=== PATIENT | female | born 1980 | race Caucasian/White ===

== ENCOUNTER 2017-03-14 15:12 | Outpatient (CLI) | payer BC, OTHER | END 2017-03-14 15:13 | disposition home or self-care (01) | DX: J45.909 Unspecified asthma, uncomplicated (principal) ==

== ENCOUNTER 2017-04-25 15:38 | Outpatient (CLI) | payer OTHER ==
[2017-04-25] MEDS ORDERED: IOPAMIDOL-300 100 ML VIAL IVP ONE (16:53)
--- NOTE | 2017-04-25 19:06 | CT Report ---
CHEST ANGIO CT: 04/25/2017 CLINICAL HISTORY: A 36-year-old female with uncomplicated asthma and chest pain. TECHNIQUE: Patient received 80 mL of Isovue-300. A CAT scan of the pulmonary arteries was obtained at 2 mm intervals with axial, coronal, and sagittal reconstruction images. FINDINGS: Heart shows no significant enlargement. No septal bowing is seen. No filling defects are noted in the ventricles. Main pulmonary artery, right pulmonary artery and its branches are normal. Left pulmonary artery and its branches are normal. Aorta appears normal. No coronary artery calcification is seen. Lungs demonstrate some mild apical pleural thickening. No significant infiltrates are seen. No nodu les are noted. No evidence of bronchial wall thickening or bronchiectasis is seen. Bones demonstrate mild anterior spurring. Upper abdomen showed no significant abnormality. IMPRESSION: NO SIGNIFICANT ABNORMALITY. In accordance with CT protocol optimization, one or more of the following dose reduction techniques w ere utilized for this exam: automated exposure control, adjustment of mA and/or KV based on patient size, or use of iterative reconstructive technique. JOB #: [id number] EXT JOB #:[id number]
== END 2017-04-25 15:39 | disposition home or self-care (01) ==
LOC: DI 15:38
PROVIDERS: ATTEND Internal Medicine Pulmonary Disease
DX: J45.909 Unspecified asthma, uncomplicated (principal); R07.9 Chest pain, unspecified
CPT/HCPCS: 71275; Q9967

== ENCOUNTER 2017-08-24 11:12 | Outpatient (CLI) | payer OTHER ==
--- NOTE | 2017-08-25 12:25 | Ultrasound Report ---
EXAM: PELVIC ULTRASOUND EXAM DATE: 08/24/2017 11:14 AM. CLINICAL HISTORY: Menorrhagia. Full menstrual period every 2 weeks. COMPARISON: None. TECHNIQUE: Realtime transabdominal pelvic scan performed to identify the uterus and adnexa and as an overview of other pelvic structures, followed by transvaginal scan to provide greater detail of the u terus and adnexa, with static image documentation. FINDINGS: Uterus: 8.5 x 3.9 x 5.2 cm, volume 90 cc. Anteverted position. Normal overall size and echotexture. Masses: Hypoechoic posterior fundal mass measures 1.9 x 1.3 x 1.7 cm. Endometrium: 18.5 mm. Thickened. Right Ovary: 3.4 x 2.2 x 2.8 cm, volume 10.9 cc. Normal echotexture and blood flow. Left Ovary: 2.9 x 1.8 x 2.1 cm, volume 5.7 cc. Normal echotexture and blood flow. Free Fluid: Small. Other: None. IMPRESSION: 1. Hyperechoic posterior fundal mass measuring 1.9 cm in diameter. This most likely represents an aty pical fibroid. 2. Thickened endometrium measuring up to 18.5 mm. 3. Small free fluid. [facility] Referring Provider Line: [phone] SITE ID: [id number]
== END 2017-08-24 11:13 | disposition home or self-care (01) ==
LOC: DI 11:12
PROVIDERS: ATTEND Physician Assistant Medical
DX: R93.8 Abnormal findings on diagnostic imaging of other specified body structures (principal); N85.9 Noninflammatory disorder of uterus, unspecified
CPT/HCPCS: 76830; 76856

== ENCOUNTER 2018-10-29 20:14 | Emergency (ER) | payer BC, OTHER ==
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
[2018-10-29 21:14] VITALS: BP 118/88
== END 2018-10-29 21:15 | disposition home or self-care (01) ==
LOC: ED 20:14
DX: S61.532A Puncture wound without foreign body of left wrist, initial encounter (principal); W26.8XXA Contact with other sharp object(s), not elsewhere classified, initial encounter; Y93.D2 Activity, sewing; Y92.009 Unspecified place in unspecified non-institutional (private) residence as the place of occurrence of the external cause
CPT/HCPCS: 99283

== ENCOUNTER 2019-02-02 14:04 | Outpatient (CLI) | payer BC ==
--- NOTE | 2019-02-02 14:59 | XRAY Report ---
Reason: KNEE JOINT PAIN, LEFT Procedure Date: 02/02/2019 Accession Number: [id number] / [id number] Procedure: WCP - Knee 2 View LT CPT Code: FULL RESULT: EXAM: LEFT KNEE RADIOGRAPHY. EXAM DATE: 02/02/2019 02:22 PM. CLINICAL HISTORY: Knee joint pain, left. COMPARISON: None. TECHNIQUE: 2 views. FINDINGS: Bones: Normal. No fractures or bone lesions. Joints: Normal. No effusion. No subluxations. Soft Tissues: Normal. No soft tissue swelling. IMPRESSION: No significant degenerative changes, fracture or dislocation. [facility]
== END 2019-02-02 14:05 | disposition home or self-care (01) ==
LOC: DI.WCP 14:04
PROVIDERS: ATTEND Family Medicine
DX: M25.562 Pain in left knee (principal)

== ENCOUNTER 2019-02-20 13:02 | Outpatient (CLI) | payer BC ==
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
== END 2019-02-20 13:03 | disposition home or self-care (01) ==
LOC: DI 13:02
PROVIDERS: ATTEND Physician Assistant Medical
DX: S82.145A Nondisplaced bicondylar fracture of left tibia, initial encounter for closed fracture (principal); S80.12XA Contusion of left lower leg, initial encounter; S83.242A Other tear of medial meniscus, current injury, left knee, initial encounter; S83.512A Sprain of anterior cruciate ligament of left knee, initial encounter; M22.42 Chondromalacia patellae, left knee; M25.462 Effusion, left knee

== ENCOUNTER 2019-12-08 09:25 | Outpatient (CLI) | payer BC, OTHER ==
[2019-12-08 13:00] LABS: BASOPHILS % (AUTO) 0.7 %; EOSINOPHILS # (AUTO) 0.1 10^3/uL (0.0-0.7); EOSINOPHILS % (AUTO) 1.9 %; HGB - HEMOGLOBIN 13.2 g/dL (12.0-16.0); LYMPHOCYTES # (AUTO) 1.1 10^3/uL (1.5-3.5); LYMPHOCYTES % (AUTO) 19.9 %; MEAN CORPUSCULAR HEMOGLOBIN 29.3 pg (27.0-31.0); MEAN CORPUSCULAR HGB CONC 32.8 g/dL (32.0-36.0); MEAN CORPUSCULAR VOLUME 89.4 fL (81.0-99.0); MEAN PLATELET VOLUME 10.6 fL (7.9-10.8); MONOCYTES # (AUTO) 0.5 10^3/uL (0.0-1.0); MONOCYTES % (AUTO) 8.3 %; NEUTROPHILS # (AUTO) 3.9 10^3/uL (1.5-6.6); PLT - PLATELET COUNT 194 10^3/uL (130-450); RED BLOOD COUNT 4.51 10^6/uL (4.20-5.40); RED CELL DISTRIBUTION WIDTH 12.6 % (12.0-15.0); WHITE BLOOD COUNT 5.7 x10^3/uL (4.8-10.8)
[2019-12-08 13:26] LABS: ALBUMIN 4.5 g/dL (3.2-5.5); ALBUMIN/GLOBULIN RATIO 1.9 (1.0-2.2); ALKALINE PHOSPHATASE 45 IU/L (42-121); ALT ALANINE AMINOTRANSFERASE 18 IU/L (10-60); AST ASPARTATE AMINOTRANSFERASE 23 IU/L (10-42); BILIRUBIN,TOTAL 0.9 mg/dL (0.2-1.0); BUN - BLOOD UREA NITROGEN 10 mg/dL (6-20); CALCIUM 8.8 mg/dL (8.5-10.3); CARBON DIOXIDE - CO2 27 mmol/L (21-32); CHLORIDE 103 mmol/L (101-111); CHOL/HDL RATIO 2.7 (<4.4); CHOLESTEROL 199 mg/dL; CREATININE 0.7 mg/dL (0.4-1.0); GFR - MDRD 92 (>89); GLUCOSE 82 mg/dL (70-100); HDL CHOLESTEROL 74 mg/dL; LDL CHOLESTEROL,CALCULATED 116 mg/dL; LDL/HDL RATIO 1.6 (<4.4); SODIUM 137 mmol/L (135-145); TOTAL PROTEIN 6.9 g/dL (6.7-8.2); VLDL CHOLESTEROL 9 mg/dL
[2019-12-08 13:55] LABS: FOLLICLE STIMULATING HORMONE 11.21 mIU/mL
[2019-12-08 13:56] LABS: LUTEINIZING HORMONE 7.63 mIU/mL
== END 2019-12-08 23:59 | disposition home or self-care (01) ==
LOC: LAB.WCP 09:25
PROVIDERS: ATTEND Physician Assistant Medical
DX: Z00.00 Encounter for general adult medical examination without abnormal findings (principal); R41.3 Other amnesia; N94.10 Unspecified dyspareunia
CPT/HCPCS: 36415; 80053; 80061; 82607; 82670; 83001; 83002; 83721; 84443; 85025

== ENCOUNTER 2020-02-23 10:56 | Outpatient (CLI) | payer OTHER | END 2020-02-23 23:59 | disposition home or self-care (01) | LOC: LAB.WCP 10:56 | PROVIDERS: ATTEND Physician Assistant Medical | DX: R06.09 Other forms of dyspnea (principal) | CPT/HCPCS: 36415; 85379 ==

== ENCOUNTER 2020-09-21 11:10 | Outpatient (CLI) | payer OTHER | END 2020-09-21 11:11 | disposition home or self-care (01) | LOC: COV 11:10 | PROVIDERS: ATTEND Family Medicine | DX: R05 Cough (principal); R06.02 Shortness of breath; R53.83 Other fatigue; R19.7 Diarrhea, unspecified; R09.81 Nasal congestion; R11.2 Nausea with vomiting, unspecified; Z20.828 Contact with and (suspected) exposure to other viral communicable diseases ==

== ENCOUNTER 2020-11-21 08:00 | Outpatient (CLI) | payer OTHER ==
[2020-11-21 18:06] LABS: BASOPHILS % (AUTO) 0.5 %; EOSINOPHILS # (AUTO) 0.2 10^3/uL (0.0-0.7); EOSINOPHILS % (AUTO) 2.4 %; HGB - HEMOGLOBIN 13.8 g/dL (12.0-16.0); LYMPHOCYTES # (AUTO) 1.7 10^3/uL (1.5-3.5); LYMPHOCYTES % (AUTO) 27.5 %; MEAN CORPUSCULAR HEMOGLOBIN 29.4 pg (27.0-31.0); MEAN CORPUSCULAR HGB CONC 32.2 g/dL (32.0-36.0); MEAN CORPUSCULAR VOLUME 91.3 fL (81.0-99.0); MEAN PLATELET VOLUME 10.3 fL (7.9-10.8); MONOCYTES # (AUTO) 0.5 10^3/uL (0.0-1.0); MONOCYTES % (AUTO) 8.4 %; NEUTROPHILS # (AUTO) 3.8 10^3/uL (1.5-6.6); PLT - PLATELET COUNT 220 10^3/uL (130-450); RED BLOOD COUNT 4.69 10^6/uL (4.20-5.40); RED CELL DISTRIBUTION WIDTH 12.5 % (12.0-15.0); WHITE BLOOD COUNT 6.2 x10^3/uL (4.8-10.8)
--- OUTSIDE RECORDS SUMMARY | 2020-11-22 14:42 | EXTERNAL MEDICAL SUMMARY RPT | Continuity of Care Document ---
:1980 Demographics Phone Unavailable Preferred Language Urdu Marital Status Unknown Protestant Affiliation Unknown Race Unknown Ethnic Group Unknown Author Organization [place] Address [address] [phone] Phone Care Team Providers Name Role Phone PAMaria C Unavailable Unavailable Isabelle Unavailable Unavailable Young Unavailable Unavailable Young Unavailable Unavailable Problems date description facility 1988-12-02 00:00:00 Personal history of other [facility] specified diseases [place] [facility] 2006-09-16 00:00:00 Viral warts, [facility] [address] 2006-09-16 00:00:00 Other viral warts [facility] [address] 2006-09-16 00:00:00 Hand wart [facility] [address] 2006-09-26 00:00:00 Conjunctivitis, unspecified [facility] [address] 2006-09-26 00:00:00 Allergic rhinitis, cause [facility] unspecified [address] 2006-09-26 00:00:00 Unspecified [facility]ivitis [facility] [address] 2006-09-26 00:00:00 Allergic rhinitis, [facility] [address] 2006-09-26 00:00:00 Allergic rhinitis [facility] [address] 2006-09-26 00:00:00 Conjunctivitis [facility] [address] 2006-12-16 00:00:00 Mitral valve disorders [facility] [address] 2006-12-16 00:00:00 Asthma, unspecified [facility] Care [address] 2006-12-16 00:00:00 Contact dermatitis and other [facility] eczema, unspecified cause [address] 2006-12-16 00:00:00 Unspecified asthma, [facility] Care uncomplicated [address] 2006-12-16 00:00:00 Unspecified contact dermatitis, [facility] unspecified cause [place] [facility] 2006-12-16 00:00:00 Asthma [facility] [place] [facility] 2006-12-16 00:00:00 [facility] agoraphobia [facility] 2006-12-16 00:00:00 Other personal history of [facility] diseases of circulatory system [facility] 2006-12-16 00:00:00 Other [facility], other [facility] medicinal agents [facility] 2006-12-16 00:00:00 Panic disorder [episodic [facility] paroxysmal anxiety] [facility] 2006-12-16 00:00:00 Nonrheumatic mitral (valve) [facility] prolapse [facility] 2006-12-16 00:00:00 Personal history of other [facility] diseases of the circulatory [facility] system 2006-12-16 00:00:00 [facility] status [facility] 2006-12-16 00:00:00 Atopy [facility] 2006-12-16 00:00:00 [facility]ic [facility] 2006-12-16 00:00:00 [facility] 2006-12[facility]16 00:00:00 Mitral valve prolapse [facility] 2007-03-18 00:00:00 Acute laryngitis [facility] [address] 2010-03-07 00:00:00 Acute sinusitis, unspecified [facility] [address] 2010-03-07 00:00:00 Acute sinusitis [facility] [address] 2010-11-13 00:00:00 Cough [facility] [place] [facility] 2011-04-20 00:00:00 Diarrhea [facility] 2011-04-20 00:00:00 Diarrhea, unspecified [facility] 2011-09-14 00:00:00 Toxic effect of venom of bees, [facility] accidental (unintentional), [address] initial encounter 2011-09-14 00:00:00 Toxic effect of venom of bees, [facility] undetermined [address] 2011-09-14 00:00:00 Toxic reaction to hornets, wasps [facility] and bees [address] 2011-09-14 00:00:00 Toxic effect of venom [facility] 2011-09-14 00:00:00 Poison[facility] 2011-10-09 00:00:00 Acute sinusitis, unspecified [facility] Care [address] 2011-10-09 00:00:00 [facility] 2011-10-09 [facility]:00:[facility] 2011-10[facility]09 [facility]:00:00 [facility] 2012-01-22 00:00:00 Dermatophytosis of nail [facility] Primary Care [address] 2012-01-22 00:00:00 Other specified diseases of nail id [facility] Primary Care [address] 2012-01-22 00:00:00 T[facility]guium [facility] [address] 2012-01-22 00:00:00 [facility] [address] 2012-01-22 00:00:00 [facility] 2012-04-17 00:00:00 Acute bronchitis [facility] 2012-04-17 00:00:00 Acute bronchitis, unspecified [facility] Primary Care [place] [facility] 2012-04-24 00:00:00 Unspecified viral infection [facility] [address] 2012-04-24 00:00:00 [facility]ritable bowel [facility] [address] 2012-04-24 00:00:00 Irritable bowel syndrome without [facility] diarrhea [address] 2012-04-24 00:00:00 Di[facility] 2012-04-24 00:00:00 Viral infection, [facility] [place] [facility] 2012-04-24 00:00:00 Diarrhea, [facility] [place] [facility] 2012-04-24 00:00:00 Viral disease [facility] 2012-09-11 00:00:00 Vaginitis and vulvovaginitis, [facility] Primary Care unspecified [address] 2012-10-20 00:00:00 Neoplasm of uncertain behavior [facility] Primary Care of skin [address] 2012-10-20 00:00:00 Panic disorder [episodic [facility] paroxysmal anxiety] without [place] [facility] agoraphobia 2012-10-20 00:00:00 Panic disorder [episodic [facility] paroxysmal anxiety] [address] 2012-10-20 00:00:00 D[facility]unia [facility] [address] 2012-10-20 00:00:00 Other nonmedicinal substance [facility] Primary Care allergy status [address] 2012-10-20 00:00:00 [facility]opy [facility] [address] 2012-10-20 00:00:00 Panic disorder without [facility] Primary Care agoraphobia [facility] 2012-10-20 00:00:00 Other allergy, other than to [facility] Primary Care medicinal agents [facility] 2012-10-20 00:00:00 [facility] 2012-12-29 00:00:00 Candidiasis of unspecified site idb [facility] Primary Care [address] 2012-12-29 00:00:00 Mycosis [facility] [address] 2012-12-29 00:00:00 Candidiasis, unspecified [facility] [place] [facility] 2013-01-06 00:00:00 [facility] [address] 2013-01-06 00:00:00 Olecranon bursitis, right elbow [facility] Primary Care [place] [facility] 2013-01-06 00:00:00 Lumbago [facility] 2013-01-06 00:00:00 Olecranon bursitis [facility] 2013-03-03 00:00:00 Vaginitis and vulvovaginitis, [facility] Primary Care unspecified [place] [facility] 2013-03-03 00:00:00 Vaginitis [facility] [place] [facility] 2013-03-03 00:00:00 Acute vaginitis [facility] 2013-04-13 00:00:00 Cough [facility] 2013-08-13 00:00:[address] [facility] Primary [facility] [place] [facility] 2013-08-13 00:00:00 Headache [facility] [place] [facility] 2013-08-24 00:00:00 Other specified disorders of the [employer] Primary [facility] skin and subcutaneous tissue [place] [facility] 2013-08-24 00:00:00 Health-related behavior [facility] Primary Care [address] 2013-08-24 00:00:00 Details of drug misuse behavior [facility] Primary Care [address] 2013-08-24 00:00:00 Verruca plantaris [facility] [place] [facility] 2013-08-24 00:00:00 Unspecified disorder of skin and [employer] [facility] Primary Care subcutaneous tissue [facility] 2013-08-24 00:00:00 Plantar wart [facility] 2013-08-24 00:00:00 Skin lesion [facility] 2013-08-31 19:29 GASTROINTEST HEMORR NOS [facility] 2013-08-31 19:29 ABDOMINAL PAIN, UNSPECIFIED SITE [facility] 2013-10-23 00:00:00 Health-related behavior [facility] Primary Care [address] 2013-10-23 00:00:00 Tobacco use and exposure [facility] [address] 2013-10-23 00:00:00 [facility]oker [facility] [address] 2013-10-23 00:00:00 Dysuria [facility] 2013-12-14 00:00:00 [facility] [address] 2013-12-14 00:00:00 Patellofemoral stress syndrome [facility] Primary Care [address] 2013-12-14 00:00:00 Pain in joint involving lower [facility] Primary Care leg [facility] 2013-12-14 00:00:00 Hypersomnia, unspecified [facility] 2013-12-14 00:00:00 Hypersomnia [facility] 2014-01-12 00:00:00 Candidiasis, unspecified [facility] [address] 2014-01-12 00:00:00 Alcohol [facility] [address] 2014-01-12 00:00:00 [facility] smoker [facility] [address] 2014-01-12 00:00:00 Mycosis [facility] [address] 2014-01-12 00:00:00 Candidiasis of unspecified site [facility] Primary Care [facility] 2014-01-19 00:00:00 Hemorrhage of rectum and anus [facility] Primary Care [address] 2014-01-19 00:00:00 [facility] 2014-01-19 00:00:00 Hemorrhage of anus and rectum [facility] Primary Care [facility] 2014-01-19 00:00:00 Rectal hemorrhage [facility] 2014-03-22 00:00:00 [facility] 2014-03-22 00:00:00 Excessive and [facility] menstruation with regular cycle [place] [facility] 2014-03-22 00:00:00 [facility] 2014-03-22 00:00:00 [facility]orrhagia [facility] [place] 2014-04-19 00:00:00 Influenza with other respiratory id [facility] Primary Care manifestations [address] 2014-04-19 00:00:00 TSH [facility] Care [address] 2014-04-19 00:00:00 Influenza due to unidentified [facility] Primary Care influenza virus with other [place] [facility] respiratory manifestations 2014-04-19 00:00:00 [facility] and [facility] [address] 2014-04-19 00:00:00 Menopausal flushing [facility] [address] 2014-04-19 00:00:00 Symptomatic menopausal or female id [facility] Primary Care [facility] 2014-04-19 00:00:[facility] 2014-04-19 00:00:00 T4, Free [facility] 2014-04-19 00:00:00 CBCDP [facility] [place] [address] 2014-04-19 00:00:00 Influenza [facility] 2014-07-08 00:00:00 Candidiasis of vulva and vagina [facility] Primary Care [address] 2014-07-08 00:00:00 Acute vaginitis [facility] [address] 2014-07-08 00:00:00 Vaginitis and vulvovaginitis, [facility] Primary Care unspecified [place] [address] 2014-07-08 00:00:00 Alcohol intake [facility] 2014-07-08 00:00:00 Health-related behavior [facility] Care [place] [address] 2014-07-08 00:00:00 Tobacco use and exposure [facility] Care [place] [address] 2014-07-08 00:00:00 Never smoker [facility] 2014-07-08 00:00:00 [facility] 2014-07-08 00:00:00 Alcohol [facility] 2014-07-08 00:00:00 Candidiasis of vagina [facility] 2014-07-08 09:[address] [facility] 2014-08-06 00:00:00 Health-related behavior [facility] Care [address] 2014-08-06 00:00:00 Tobacco use and exposure [facility] [address] 2014-08-06 00:00:00 Contact dermatitis and other [facility] Care eczema, unspecified cause [facility] 2014-08-06 00:00:00 Dermatitis, [facility] 2014-08-06 00:00:00 Alcohol [facility] 2014-08-06 00:00:00 Never smoker [facility] 2014-08-06 00:00:00 Alcohol use [facility] 2014-08-21 21:44 ASTHMA, UNSPECIFIED [facility] 2014-08-21 21:44 NONINF GASTROENTERIT NEC [facility] 2014-08-21 21:44 ABDOMINAL PAIN, UNSPECIFIED SITE [facility] 2014-09-03 00:00:00 Contact dermatitis and other [facility] Care eczema, unspecified cause [address] 2014-09-03 00:00:00 [facility] [place] [facility] 2014-09-03 00:00:00 Health-related behavior [facility] [address] 2014-09-03 00:00:00 [facility] [address] 2014-09-03 00:00:00 Dermatitis, unspecified [facility] [place] [facility] 2014-09-03 00:00:00 Tobacco use and exposure [facility] 2014-09-03 00:00:00 [facility] 2014-12-01 00:00:00 Acute upper respiratory [facility] infection, unspecified [address] 2014-12-01 00:00:00 [facility] [address] 2014-12-01 00:00:00 Acute upper respiratory [facility] Primary Care infections of unspecified site [place] [facility] 2014-12-01 00:00:00 Never smoker [facility] Prim w[facility] Care [place] [facility] 2014-12-03 00:00:00 Acute conjunctivitis, [facility] P rimary Care unspecified [address] 2014-12-03 00:00:00 Acute conjunctivitis [facility] Pr imary Care [address] 2014-12-03 00:00:00 Unspecified acute [facility] Prim wendy Care conjunctivitis, unspecified eye [place] [facility] 2014-12-19 18:50 OTITIS MEDIA NOS [facility] 2014-12-19 18:50 NONINF GASTROENTERIT NEC [facility] 2014-12-19 18:50 ABDOMINAL PAIN, UNSPECIFIED SITE [facility] 2015-07-12 00:00:00 CMP [facility] Prim wendy Care [address] 2015-07-12 00:00:00 Plantar wart [facility] wendy Care [address] 2015-07-12 00:00:00 Other specified disorders of [facility] Primary Care Eustachian tube, unspecified ear [place] [address] [place] 2015-07-12 00:00:00 Dysfunction of eustachian tube [facility] Primary Care [address] 2015-07-12 00:00:00 Dysfunction of Eustachian tube [facility] Primary Care [place] [facility] 2015-07-12 00:00:00 Never smoker [facility] Prim w[facility]y Care [place] [facility] 2015-07-12 00:00:00 Verruca plantaris [facility] wendy Care [place] [facility] 2015-07-12 10:44 DERMATOPHYTOSIS OF NAIL [facility] 2015-09-26 00:00:00 MRI, BRAIN W/ AND W/O CONTRAST [facility] Primary Care [address] 2015-09-26 00:00:00 B-12 [facility] [address] 2015-09-26 00:00:00 TSH [facility] w[facility] Care [address] 2015-09-26 00:00:00 Unspecified disturbances [facility] smell and taste [address] 2015-09-26 00:00:00 Alcohol intake [facility] [address] 2015-09-26 00:00:00 Health-related behavior [facility] [address] 2015-09-26 00:00:00 Never smoker [facility] [address] 2015-09-26 00:00:00 Alcohol use [facility] [address] 2015-09-26 00:00:00 Disorder of vision [facility] [address] 2015-09-26 00:00:00 Subjective visual disturbance, idbe [facility] Primary Care unspecified [facility] 2015-09-26 00:00:00 [facility] 2015-09-26 00:00:00 CBCDP [facility] 2015-09-26 00:00:00 Sed Rate Non-Auto [facility] 2015-09-26 00:00:00 Unspecified visual disturbance idbe [facility] Primary Care [place] [facility] 2015-09-26 00:00:00 Tobacco use and exposure [facility] Primary Care [place] [facility] 2015-09-26 00:00:00 Tobacco smoking status NHIS [facility] [place] 2015-10-05 15:34 UNSPECIFIED VISUAL DISTURBANCE [facility] 2015-10-13 00:00:00 Vulvodynia, unspecified [facility] [address] 2015-10-13 00:00:00 Jaw pain [facility] [address] 2015-10-13 00:00:00 [facility] [address] 2015-10-13 00:00:00 Health-related behavior [facility] [address] 2015-10-13 00:00:00 Exercise [facility] [address] 2015-10-13 00:00:00 Alcohol use [facility] Care [address] 2015-10-13 00:00:00 ENT Consultation [facility] wendy Care [facility] 2015-10-13 00:00:00 Tobacco use and exposure [facility] [place] [facility] 2015-10-13 00:00:00 Vulvodynia [facility] wendy Care [place] [facility] 2015-10-13 00:00:00 Never smoker [facility] [place] [facility] 2015-10-13 00:00:00 Tobacco smoking status NHIS [facility] Primary Care [place] [facility] 2015-10-15 09:[address] [facility] 2015-10-15 09:08 NONINFECTIVE GASTROENTERITIS AND [facility] COLITIS, UNSPECIFIED 2015-10-15 09:08 UNSPECIFIED ABDOMINAL PAIN [facility] 2015-10-15 09:08 NAUSEA WITH VOMITING, [facility] dical Center UNSPECIFIED 2015-11-07 00:00:00 Cardiology Consultation [facility] [address] 2016-01-30 00:00:00 Allergy Consultation [facility] imary Care [facility] 2016-02-27 00:00:00 Bradycardia [facility] [address] 2016-02-27 00:00:00 Other specified cardiac [facility] Primary Care dysrhythmias [facility] 2016-02-27 00:00:00 Bradycardia, unspecified [facility] [place] [facility] 2016-03-05 00:00:00 Routine general medical [facility] Primary Care examination at a health care [address] facility 2016-03-05 00:00:00 Other screening mammogram [facility] Primary Care [address] 2016-03-05 00:00:00 Encounter for general adult [facility] Primary Care medical examination without [address] abnormal findings 2016-03-05 00:00:00 Encounter for screening [facility] Primary Care mammogram for malignant neoplasm Laisha HELLER of breast 2016-03-05 00:00:00 [facility] 2016-03-05 00:00:00 Screening - [facility] 2016-03-07 00:00:00 Injury, unspecified [facility] [address] 2016-03-07 00:00:00 Alcohol intake [facility] [address] 2016-03-07 00:00:00 Health-related behavior [facility] [address] 2016-03-07 00:00:00 Exercise [facility] [address] 2016-03-07 00:00:00 Never smoker [facility] [address] 2016-03-07 00:00:00 Alcohol use [facility] [address] 2016-03-07 00:00:00 Open wound(s) (multiple) of [facility] unspecified site(s) except limbs, [place] [facility] without mention of complication 2016-03-07 00:00:00 Tobacco use and exposure [facility] 2016-03-07 00:00:00 Wound [facility] 2016-03-07 00:00:00 Tobacco smoking status PAIS [facility] 2016-03-29 00:00:00 Alcohol intake [facility] [address] 2016-03-29 00:00:00 Health-related behavior [facility] [address] 2016-03-29 00:00:00 Exercise [facility] [address] 2016-03-29 00:00:00 Never smoker [facility] [address] 2016-03-29 00:00:00 Alcohol use [facility] [address] 2016-03-29 00:00:00 Tobacco use and exposure [facility] 2016-03-29 00:00:00 Tobacco smoking status NHIS [facility] 2016-05-24 00:00:00 Open wound of forearm, without [facility] mention of complication [address] 2016-05-24 00:00:00 Abrasion or friction burn of Jan[facility] e[facility] Primary Care elbow, forearm, and wrist, [address] without mention of infection 2016-05-24 00:00:00 Other and unspecified [facility] [facility] superficial injury of other, [address] multiple, and unspecified sites, without mention of infection 2016-05-24 00:00:00 Bite of other animal except [facility] arthropod [address] 2016-05-24 00:00:00 Abrasion of right forearm, [facility] initial encounter [address] 2016-05-24 00:00:00 Open bite of right forearm, Luis M [facility] Primary Care initial encounter [address] 2016-05-24 00:00:00 Other injury of unspecified body [facility] Primary Care region [address] 2016-05-24 00:00:00 [facility] [address] 2016-05-24 00:00:00 Tobacco use and exposure [facility] Primary Care [address] 2016-05-24 00:00:00 [facility] [address] 2016-05-24 00:00:00 Tobacco smoking status NHIS Luis M alth Primary Care [address] 2016-05-24 00:00:00 Other specified injury caused by [employer] Primary [facility] animal [facility] 2016-05-24 00:00:00 Bitten by cat, initial encounter [facility] 2016-05-24 00:00:00 Scratched by cat, initial [facility] encounter [facility] 2016-05-24 00:00:00 Abrasion, [facility] 2016-05-24 00:00:00 Health-related behavior [facility] 2016-05-24 00:00:00 [facility] 2016-05-24 00:00:00 Bite - [facility] 2016-05-24 00:00:00 Animal bite [facility] 2016-05-24 00:00:00 Alcohol [facility] 2016-06-20 00:00:00 [facility] [address] 2016-06-20 00:00:00 Pain in thoracic spine [facility] Primary Care [address] 2016-06-20 00:00:00 Thoracic back pain [facility] 2016-06-29 00:00:00 Hypersomnia, unspecified [facility] [address] 2016-06-29 00:00:00 Other personal history of [facility] diseases of circulatory system [address] Tremaine alvarado 2016-06-29 00:00:00 Idiopathic hypersomnia with long id [facility] Primary Care sleep time [address] 2016-06-29 00:00:00 Personal history of other [facility] diseases of the circulatory [facility] system 2016-06-29 00:00:00 H/O: heart [facility] 2016-06-29 00:00:00 Idiopathic hypersomnia [facility] 2016-08-13 00:00:00 Diarrhea [facility] [address] 2016-08-13 00:00:00 C Diff Toxins by [facility] [address] 2016-08-13 00:00:00 Giardia Lamblia by [facility] Care [address] 2016-08-13 00:00:00 Tobacco use and exposure [facility] [address] 2016-08-13 00:00:00 [facility] [address] 2016-08-13 00:00:00 [facility] [address] 2016-08-13 00:00:00 Stool Culture [facility] 2016-08-13 00:00:00 [facility] 2016-08[facility]13 00:00:00 WBC Stool [facility] 2016-08-13 00:00:00 H Pylori Stool [facility] [address] [facility] 2016-08-13 00:00:00 Diarrhea, unspecified [facility] Care [facility] 2016-08-13 00:00:00 Alcohol intake [facility] [address] [facility] 2016-08-13 00:00:00 Exercise [facility] Care [facility] 2016-08-13 00:00:00 Tobacco smoking status NHIS [facility] 2016-08-17 07:45 DIARRHEA, UNSPECIFIED [facility] 2016-08-29 16:31 CHRONIC MAXILLARY SINUSITIS [facility] 2016-08-29 16:31 CHRONIC ETHMOIDAL SINUSITIS [facility] 2016-08-29 16:31 CHRONIC SPHENOIDAL SINUSITIS [facility] 2016-08-31 00:00:00 Culture, routine - No blood, [facility] Primary Care urine, stool [facility] 2016-08-31 16:30 ACUTE VAGINITIS [facility] 2016-09-05 07:40 DIARRHEA, UNSPECIFIED [facility] 2016-09-26 11:14 Abdominal pain [facility] 2016-09-26 11:14 UNSPECIFIED ASTHMA, [facility] UNCOMPLICATED 2016-09-26 11:14 EPIGASTRIC PAIN [facility] Medic al [place] 2016-09-26 11:14 DIARRHEA, UNSPECIFIED [facility] 2017-01-02 00:00:00 Alcohol intake [facility] [address] 2017-01-02 00:00:00 Health-related behavior [facility] [address] 2017-01-02 00:00:00 Exercise [facility] [address] 2017-01-02 00:00:00 Never smoker [facility] [address] 2017-01-02 00:00:00 Alcohol use [facility] Prim w[facility]y Care [address] 2017-01-02 00:00:00 Generalized anxiety disorder [facility] Primary Care [address] [facility] 2017-01-02 00:00:00 Tobacco use and exposure [facility] [address] [facility] 2017-01-02 00:00:00 Tobacco smoking status NHKEN segal Primary Care [address] [facility] 2017-01-30 00:00:00 [facility] [address] 2017-01-30 00:00:00 [facility] [address] 2017-01-30 00:00:00 Tobacco use and exposure [facility] Care [address] 2017-01-30 00:00:00 [facility] [address] 2017-01-30 00:00:00 Health-related behavior [facility] Primary Care [address] [facility] 2017-01-30 00:00:00 [facility] 2017-01-30 00:00:00 [facility] 2017-01-30 00:00:00 Tobacco smoking status NHKEN segal Primary Care [address] [facility] 2017-02-20 00:00:00 Pulmonology Consultation [facility] [address] 2017-02-26 00:00:00 Sleep Lab Consultation [facility] Primary Care [address] 2017-03-12 00:00:00 CHEST 2 VIEW [facility] 2017-03-13 00:00 UNSPECIFIED [facility], [facility] 2017-03-13 15:15 UNSPECIFIED ASTHMA, [facility] 2017-03-13 15:22 UNSPECIFIED ASTHMA, [facility] UN[facility]PLICATED 2017-03-14 15:12 UNSPECIFIED ASTHMA, [facility] UNCOMPLICATED 2017-04-25 15:38 UNSPECIFIED ASTHMA, [facility] UN[facility] 2017-04-25 15:38 CHEST PAIN, UNSPECIFIED [facility] 2017-04-25 16:00 UNSPECIFIED ASTHMA, [facility] UN[facility]PLIC[facility] 2017-04-25 16:00 CHEST PAIN, UNSPECIFIED [facility] 2017-06-24 00:00:00 Candidiasis of unspecified site [facility] [address] 2017-06-24 00:00:00 Candidiasis, unspecified [facility] [address] 2017-06-24 00:00:00 [facility] Prim winona Care [address] 2017-06-24 00:00:00 Health-related behavior [facility] [address] 2017-06-24 00:00:00 [facility] Prim wendy Care [address] 2017-06-24 00:00:00 Never smoker [facility] wendy Care [address] 2017-06-24 00:00:00 Alcohol [facility] wendy Care [address] 2017-06-24 00:00:00 Tobacco use and exposure [facility] [facility] 2017-06-24 00:00:00 Mycosis [facility] 2017-06-24 00:00:00 Tobacco smoking status NHIS [facility] 2017-08-16 00:00:00 [facility] [address] 2017-08-16 00:00:00 US PELVIC/TRANSVAGINAL [facility] [facility] 2017-08-16 00:00:00 TSH w/Reflex to Free T4, if [facility] alth Primary Care needed [facility] 2017-08-16 00:00:00 Need for prophylactic [facility] P rimary Care vaccination and inoculation [facility] against unspecified single disease 2017-08-16 00:00:00 BMP [facility] [facility] 2017-08-16 00:00:00 Prolactin [facility] 2017-08-16 00:00:00 CBC W/Diff/Plt [facility] 2017-08-16 00:00:00 Encounter for immunization [facility] [facility] 2017-08-27 00:00:00 OBGYN Consultation [facility] [address] 2017-11-18 07:47 EXCESSIVE AND FREQUENT [facility] MENSTRUATION WITH REGULAR CYCLE 2017-11-18 09:00 EXCESSIVE AND FREQUENT [facility] MENSTRUATION WITH REGULAR CYCLE 2018-01-13 00:00:00 Acute sinusitis, unspecified [facility] Primary Care [address] 2018-01-13 00:00:00 Acute sinusitis [facility] [address] 2018-01-13 00:00:00 Exercise [facility] [address] 2018-01-13 00:00:00 Tobacco smoking status PAKEN [facility] Primary Care [address] 2018-01-13 00:00:00 Alcohol [facility] [address] [facility] 2018-01-13 00:00:00 Health[facility]related [facility] [address] [facility] 2018-01-13 00:00:00 Tobacco use and exposure [facility] [address] [facility] 2018-01-13 00:00:00 Never smoker [facility] [address] [facility] 2018-01-13 00:00:00 Alcohol use [facility] [address] [facility] 2018-02-11 00:00:00 Health[facility] [address] 2018-02-11 00:00:00 Exercise [facility] [address] 2018-02-11 00:00:00 Never smoker [facility] [address] 2018-02-11 00:00:00 Tobacco smoking status JOVITA [facility] Primary Care [address] 2018-02-11 00:00:00 Tobacco use and exposure [facility] [address] [facility] 2018-02-11 00:00:00 Alcohol use [facility] [address] [facility] 2018-09-16 00:00:00 Tobacco use and exposure [facility] [address] 2018-09-16 00:00:00 Never smoker [facility] [address] 2018-09-16 00:00:00 Alcohol use [facility] [address] 2018-09-16 00:00:00 Alcohol [facility] 2018-09-16 00:00:00 Health[facility] 2018-09-16 00:00:00 Exercise [facility] 2018-09-16 00:00:00 Tobacco smoking status NHIS WhidJaison alth [facility] 2018-10-29 20:14 Puncture wound of left wrist [facility] with complication 2018-10-29 20:14 UNSP INJURY OF SHOULDER AND idbeyHea [facility] UPPER ARM, UNSP ARM, INIT ENCNTR 2018-10-29 20:14 PUNCTURE WOUND W/O FOREIGN BODY [facility] OF LEFT WRIST, INIT ENCR 2018-10-29 20:14 CONTACT WITH OTHER SHARP [facility] OBJECT(S), NEC, INITIAL ENCOUNTER 2018-10-29 20:[address] [facility] (PRIVATE) RESIDENCE PLACE 2018-10-29 20:14 ACTIVITY, SEWING [facility] al Center 2018-11-04 00:00:00 Disturbance of skin sensation [facility] [address] 2018-11-04 00:00:00 [facility] 2018-11-04 00:00:00 Laceration with foreign body of [facility] Primary [facility] left wrist, initial encounter [facility] 2018-11-04 00:00:00 [facility] [address] 2018-11-04 00:00:00 Laceration of wrist [facility] [address] 2018-11-04 00:00:00 Numbness of finger [facility] 2018-11-04 00:00:00 Tobacco smoking status NHIS Teri alth [facility] [address] 2018-11-04 00:00:00 Open wound of wrist, complicated id [facility] 2018-11-04 00:00:00 Alcohol [facility] 2018-11-04 00:00:00 Health[facility] 2018-11-04 00:00:00 Tobacco use and exposure [facility] Primary Care [facility] 2018-11-04 00:00:00 Never smoker [facility] wendy Care [facility] 2018-11-04 00:00:00 Alcohol use [facility] wendy Care [facility] 2018-11-17 00:00:00 Dyspareunia [facility] 2018-11-17 00:00:00 Pelvic Floor Dysfunction Therapy [employer] Primary Care [facility] 2018-11-17 00:00:00 Unspecified dyspareunia [facility] 2019-01-20 00:00:00 MMR Immune Status Panel [facility] Primary Care [facility] 2019-01-20 00:00:00 Other chest pain [facility] 2019-01-20 00:00:00 Other [facility] 2019-01-20 00:00:00 [facility] 2019-02-02 00:00:00 Pain in joint involving lower [facility] Primary Care leg [facility] 2019-02-02 00:00:00 KNEE 1 OR 2 VIEW [facility] 2019-02-02 00:00:00 Pain in left knee [facility] 2019-02-02 00:00:00 Alcohol intake [facility] wendy Care [facility] 2019-02-02 00:00:00 [facility] 2019-02-02 00:00:00 Tobacco use and exposure [facility] Primary Care [facility] 2019-02-02 00:00:00 Exercise [facility]endy Care [facility] 2019-02-02 00:00:00 Never smoker [facility] 2019-02-02 00:00:00 Knee pain [facility] Prim wendy [facility] 2019-02-02 00:00:00 Alcohol use [facility] Prim wendy Care [facility] 2019-02-02 00:00:00 Tobacco smoking status NHIS Teri [facility] Primary Care [facility] 2019-02-05 00:00:00 MRI KNEE WO - LT [facility] 2019-02-20 13:02 CHONDROMALACIA PATELLAE, LEFT [facility] KNEE 2019-02-20 13:02 EFFUSION, LEFT KNEE [facility] 2019-02-20 13:02 CONTUSION OF LEFT LOWER LEG, [facility] INITIAL ENCOUNTER 2019-02-20 13:02 NONDISPLACED BICONDYLAR FRACTURE [facility] OF LEFT TIBIA, INIT 2019-02-20 13:02 OTH TEAR OF MEDIAL MENISCUS, [facility] CURRENT INJURY, LEFT KNEE, INIT 2019-02-20 13:02 SPRAIN OF ANTERIOR CRUCIATE [facility] LIGAMENT OF LEFT KNEE, INIT 2019-02-23 00:00:00 Alcohol intake [facility] 2019-02-23 00:00:00 Health-related behavior [facility] 2019-02-23 00:00:00 Tobacco use and exposure [facility] Primary Care [facility] 2019-02-23 00:00:00 Exercise [facility] 2019-02-23 00:00:00 Never smoker [facility] 2019-02-23 00:00:00 Alcohol use [facility] 2019-02-23 00:00:00 Tobacco smoking status PAKEN Teri [facility] Primary Care [facility] 2019-06-19 00:00:00 TSH WITH REFLEX TO FT4 [facility] Primary Care [facility] 2019-06-19 00:00:00 COMPREHENSIVE METABOLIC PANEL [facility] Primary Care [facility] 2019-06-19 00:00:00 LIPID SCREEN, FASTING [facility] 2019-06-19 00:00:00 CBC W/Diff/Plt [facility] Prim wendy [facility] 2019-07-21 00:00:00 Open wound(s) (multiple) of [facility] Primary Care unspecified site(s) except limbs, [place] [facility] without mention of complication 2019-07-21 00:00:00 Bitten by cat, initial encounter [employer] Primary Care [facility] 2019-07-21 00:00:00 Health-related behavior [facility] 2019-07-21 00:00:00 Tobacco use and exposure [facility] Primary Care [facility] 2019-07-21 00:00:00 [facility] 2019-07-21 00:00:00 Never smoker [facility] 2019-07-21 00:00:00 Cat bite - wound [facility] wendy [facility] 2019-07-21 00:00:00 Alcohol [facility] 2019-07-21 00:00:00 Tobacco smoking status NHIS [facility] Primary Care [facility] 2019-12-03 00:00:00 TSH WITH REFLEX TO FT4 [facility] Primary Care [facility] 2019-12-03 00:00:00 Memory loss [facility] 2019-12-03 00:00:00 COMPREHENSIVE METABOLIC PANEL [facility] Primary Care [facility] 2019-12-03 00:00:00 LIPID SCREEN, [facility]STING [facility] 2019-12-03 00:00:00 VITAMIN B 12 [facility] 2019-12-03 00:00:00 E[facility]adiol [facility] 2019-12-03 00:00:00 FSH [facility] Care [facility] 2019-12-03 00:00:00 LH [facility] wendy Care [facility] 2019-12-03 00:00:00 CBC W/Diff/Plt [facility] [place] 2019-12-03 00:00:00 Other amnesia [facility] [place] [facility] 2019-12-03 00:00:00 Alcohol intake [facility] [place] [facility] 2019-12-03 00:00:00 Health-related behavior [facility] [place] [facility] 2019-12-03 00:00:00 Tobacco use and exposure [facility] [place] [facility] 2019-12-03 00:00:00 Exercise [facility] [place] [facility] 2019-12-03 00:00:00 Never smoker [facility] [place] [facility] 2019-12-03 00:00:00 Amnesia [facility] [place] [facility] 2019-12-03 00:00:00 Alcohol use [facility] [place] 2019-12-03 00:00:00 Tobacco smoking status NHIS idbeyHe alth Primary Care [place] 2019-12-08 00:00 OTHER AMNESIA [facility] al Center 2019-12-08 00:00 ENCNTR FOR GENERAL ADULT MEDICAL [facility] EXAM W/O ABNORMAL FINDINGS 2019-12-08 09:25 UNSPECIFIED DYSPAREUNIA [facility] 2019-12-08 09:25 OTHER AMNESIA [facility] Medic al Center 2019-12-08 09:25 ENCNTR FOR GENERAL ADULT MEDICAL [facility] EXAM W/O ABNORMAL FINDINGS 2019-12-22 00:00:00 Alcohol intake [facility] Prim [facility]y Care [place] [facility] 2019-12-22 00:00:00 Health-related behavior [facility] [place] 2019-12-22 00:00:00 Tobacco use and exposure [facility] [place] 2019-12-22 00:00:00 Exercise [facility] [place] 2019-12-22 00:00:00 Never smoker [facility] [place] [facility] 2019-12-22 00:00:00 Little interest or pleasure in [facility] doing things? [facility] 2019-12-22 00:00:00 Feeling down, depressed, or [facility] hopeless? [facility] 2019-12-22 00:00:00 Patient Health Questionnaire 2 [facility] item (PHQ2) total score [facility] 2019-12-22 00:00:00 Alcohol use [facility] Prim wendy Care [facility] 2019-12-22 00:00:00 Tobacco smoking status NHIS [facility] Primary Care [facility] 2020-02-09 00:00:00 Circumscribed scleroderma [facility] Primary Care [facility] 2020-02-09 00:00:00 Screening [facility] malignant [facility] neoplasms of the cervix [facility] 2020-02-09 00:00:00 VULVAR BIOPSY [facility] 2020-02-09 00:00:00 THIN PREP PAP with HPV 30+YRS [facility] Primary Care OLD [facility] 2020-02-09 00:00:00 Lichen sclerosus et atrophicus [facility] 2020-02-09 00:00:00 Superficial (introital) [facility] dyspareunia [facility] 2020-02-09 00:00:00 Encounter for screening for idbey[facility] Primary Care malignant neoplasm of cervix [facility] 2020-02-09 00:00:00 Alcohol intake [facility] 2020-02-09 00:00:00 Screening for malignant neoplasm [facility] of cervix [facility] 2020-02-09 00:00:00 Health-related behavior [facility] 2020-02-09 00:00:00 Tobacco use and exposure [facility] 2020-02-09 00:00:00 Superficial pain on intercourse idb [facility] Primary Care [facility] 2020-02-09 00:00:00 Exercise [facility] wendy [facility] 2020-02-09 00:00:00 Never smoker [facility] [place] [facility] 2020-02-09 00:00:00 Alcohol use [facility] [place] [facility] 2020-02-09 00:00:00 Tobacco smoking status PAIS WhsofiaHe alth Primary Care [place] [facility] 2020-02-23 00:00:00 Other dyspnea and respiratory [facility] Primary Care abnormality [place] [facility] 2020-02-23 00:00:00 D-DIMER [facility] [place] [facility] 2020-02-23 00:00:00 Other forms of dyspnea [facility] [place] [facility] 2020-02-23 00:00:00 Alcohol intake [facility] [place] [facility] 2020-02-23 00:00:00 [facility] [place] [facility] 2020-02-23 00:00:00 Tobacco use and exposure [facility] [place] [facility] 2020-02-23 00:00:00 Exercise [facility] [place] [facility] 2020-02-23 00:00:00 Never smoker [facility] [place] [facility] 2020-02-23 00:00:00 Dyspnea on exertion [facility] [place] [facility] 2020[facility]00:00 [facility] [place] [facility] 2020-02-23 00:00:00 Tobacco smoking status PAKEN [facility] [place] [facility] 2020-09-28 00:00:00 TSH WITH REFLEX TO FT4 [facility] [place] [facility] 2020-09-28 00:00:00 CBC W/Diff/Plt [facility] [place] [facility] 2020-09-28 00:00:00 Generalized hyperhidrosis [facility] [place] [facility] 2020-09-28 00:00:00 [facility] [place] [facility] 2020-09-28 00:00:00 Health[facility]related [facility] [place] [facility] 2020-09-28 00:00:00 [facility] [place] [facility] 2020-09-28 00:00:00 Exercise [facility] [place] [facility] 2020-09-28 00:00:00 Never smoker [facility] [place] [facility] 2020-09-28 00:00:00 Night sweats [facility] [place] [facility] 2020-09-28 00:00:00 Alcohol use [facility] [place] [facility] 2020-09-28 00:00:00 Tobacco smoking status NHIS [facility] [place] [facility] 2020-10-10 00:00:00 NEHAL SCREEN WITH REFLEX TITER & [facility] [place] [facility] 2020-10-10 00:00:00 Sed Rate [facility] [place] [facility] 2020-10-10 00:00:00 CRP [facility] [place] [facility] 2020-10-10 00:00:00 HLA-B 27 [facility] [place] [facility] 2020-10-13 00:00:00 Alcohol [facility] [place] [facility] 2020-10-13 00:00:00 Health-related behavior [facility] [place] [facility] 2020-10-13 00:00:00 Tobacco [facility] [place] [facility] 2020-10-13 00:00:00 Exercise [facility] [place] [facility] 2020-10-13 00:00:00 Never smoker [facility] [place] [facility] 2020-10-13 00:00:00 Alcohol use [facility] [place] [facility] 2020-10-13 00:00:00 Tobacco smoking status NHIS [facility] [place] [facility] 2020-11-21 00:00 GENERALIZED HYPERHIDROSIS [facility] 2020-11-21 08:00 GENERALIZED HYPERHIDROSIS [facility] Allergies date description facility NO KNOWN ENVIRONMENTAL ALLERGIES [facility] NO KNOWN ALL[facility]GIES [facility] PENICILLINS [facility] FOOD [facility] prochlorperazine edisylate * [facility] prochlorperazine maleate * [facility] cephalexin monohydrate * [facility] Sulfa (Sulfonamide Antibiotics) [facility] acetaminophen [facility] pseudoephedrine [facility] amoxicillin [facility] dextromethorphan [facility] doxylamine [facility] prochlorperazine edisylate * [facility] prochlorperazine maleate * [facility] cephalexin monohydrate * [facility] Sulfa (Sulfonamide Antibiotics) [facility] NO KNOWN ENVIRONMENTAL ALLERGIES [facility] prochlorperazine edisylate * [facility] prochlorperazine maleate * [facility] cephalexin monohydrate * [facility] Sulfa (Sulfonamide Antibiotics) [facility] No Known Drug Allergies [facility] acetaminophen [facility] pseudoephedrine [facility] amoxicillin [facility] dextromethorphan [facility] doxylamine [facility] SEREVENT DISKUS [facility] [place] [address] SEREVENT DISKUS [facility] [place] [facility] Medications date description facility 2006-09-26 00:00:00 [facility] [place] [address] 2006-09-26 00:00:00 [facility] [place] [address] 2006-09-26 00:00:00 [facility] [place] [address] 2006-09-26 00:00:00 null [facility] [place] [address] 2006-09-26 00:00:00 AZELASTINE HCL [facility] [place] [address] 2006-09-26 00:00:00 CIPROFLOXACIN HCL [facility] [place] [address] 2006-09-26 00:00:00 CIPROFLOXACIN HCL [facility] [address] [address] 2006-09-26 00:00:00 AZELASTINE HCL [facility] [address] [address] 2006-09-26 00:00:00 CIPROFLOXACIN HCL [facility] [address] [address] 2006-09-26 00:00:00 AZELASTINE HCL [facility] [place] [address] 2006-09-26 00:00:00 null [facility] [place] [facility] 2006-09-26 00:00:00 null [facility] [place] [facility] 2006-09-26 00:00:00 null [facility] [place] [facility] 2006-09-26 00:00:00 null [facility] [place] [facility] 2006-09-26 00:00:00 AZELASTINE HCL [facility] [place] [facility] 2006-09-26 00:00:00 CIPROFLOXACIN HCL [facility] [place] [facility] 2006-09-26 00:00:00 CIPROFLOXACIN HCL [facility] [place] [facility] 2006-09-27 00:00:00 null [facility] [place] [address] 2006-09-27 00:00:00 null [facility] [place] [address] 2006-09-27 00:00:00 [id number] [facility] [place] [address] 2006-09-27 00:00:00 null [facility] [place] [facility] 2006-09-27 00:00:00 null [facility] [place] [facility] 2006-09-27 00:00:00 [id number] [facility] [place] [facility] 2006-10-28 00:00:00 null [facility] [place] [address] 2006-10-28 00:00:00 null [facility] [place] [address] 2006-10-28 00:00:00 TRETINOIN [facility] [place] [address] 2006-10-28 00:00:00 TRETINOIN [facility] [place] [address] 2006-10-28 00:00:00 TRETINOIN [facility] [place] [address] 2006-10-28 00:00:00 null [facility] [place] [facility] 2006-10-28 00:00:00 null [facility] [place] [facility] 2006-10-28 00:00:00 TRETINOIN [facility] [place] [facility] 2006-10-28 00:00:00 TRETINOIN [facility] [place] [facility] 2006-12-16 00:00:00 null [facility] [place] [address] 2006-12-16 00:00:00 null [facility] [place] [address] 2006-12-16 00:00:00 null [facility] [place] [address] 2006-12-16 00:00:00 null [facility] [place] [address] 2006-12-16 00:00:00 null [facility] [place] [address] 2006-12-16 00:00:00 null [facility] [place] [address] 2006-12-16 00:00:00 null [facility] [place] [address] 2006-12-16 00:00:00 null [facility] [place] [address] 2006-12-16 00:00:00 null [facility] [place] [address] 2006-12-16 00:00:00 null [facility] [place] [address] 2006-12-16 00:00:00 FLUTICASONE-SALMETEROL [facility] [place] [address] 2006-12-16 00:00:00 ESCITALOPRAM OXALATE [facility] [place] [address] 2006-12-16 00:00:00 ESCITALOPRAM OXALATE [facility] [place] [address] 2006-12-16 00:00:00 ESCITALOPRAM OXALATE [facility] [place] [address] 2006-12-16 00:00:00 ESCITALOPRAM [facility]XALATE [facility] [place] [address] 2006-12-16 00:00:00 ALBUTEROL SULFATE AERS [facility] [place] [address] 2006-12-16 00:00:00 FLUTICASONE-SALMETEROL [facility] [place] [address] 2006-12-16 00:00:00 ESCITALOPRAM OXALATE [facility] [place] [address] 2006-12-16 00:00:00 FLUTICASONE PROPIONATE (INHAL) [facility] [place] [address] 2006-12-16 00:00:00 ESCITALOPRAM [facility]XALATE [facility] [place] [address] 2006-12-16 00:00:00 ESCITALOPRAM OXALATE [facility] [place] [address] 2006-12-16 00:00:00 FLUTICASONE-SALMETEROL [facility] [place] [address] 2006-12-16 00:00:00 null [facility] [place] [facility] 2006-12-16 00:00:00 null [facility] [place] [facility] 2006-12-16 00:00:00 null [facility] [place] [facility] 2006-12-16 00:00:00 null [facility] [place] [facility] 2006-12-16 00:00:00 null [facility] [place] [facility] 2006-12-16 00:00:00 null [facility] [place] [facility] 2006-12-16 00:00:00 null [facility] [place] [facility] 2006-12-16 00:00:00 null [facility] [place] [facility] 2006-12-16 00:00:00 null [facility] [place] [facility] 2006-12-16 00:00:00 null [facility] [place] [facility] 2006-12-16 00:00:00 FLUTICASONE-SALMETEROL [facility] [place] [facility] 2006-12-16 00:00:00 ESCITALOPRAM OXALATE [facility] [place] [facility] 2006-12-16 00:00:00 ESCITALOPRAM OXALATE [facility] [place] [facility] 2006-12-16 00:00:00 ALBUTEROL SULFATE AERS [facility] [place] [facility] 2006-12-16 00:00:00 FLUTICASONE PROPIONATE (INHAL) [facility] [place] [facility] 2006-12-16 00:00:00 ESCITALOPRAM OXALATE [facility] [place] [facility] 2006-12-16 00:00:00 ESCITALOPRAM OXALATE [facility] [place] [facility] 2006-12-16 00:00:00 FLUTICASONE-SALMETEROL [facility] [place] [facility] 2007-03-18 00:00:00 null [facility] [place] [address] 2007-03-18 00:00:00 null [facility] [place] [address] 2007-03-18 00:00:00 FOLIC ACID [facility] [place] [address] 2007-03-18 00:00:00 FOLIC ACID [facility] [place] [address] 2007-03-18 00:00:00 FOLIC ACID [facility] [place] [address] 2007-03-18 00:00:00 null [facility] [place] [facility] 2007-03-18 00:00:00 null [facility] [place] [facility] 2007-03-18 00:00:00 FOLIC ACID [facility] [place] [facility] 2007-03-18 00:00:00 FOLIC ACID [facility] [place] [facility] 2007-05-13 00:00:00 null [facility] [place] [address] 2007-05-13 00:00:00 null [facility] [place] [address] 2007-05-13 00:00:00 CETIRIZINE HCL [facility] [place] [address] 2007-05-13 00:00:00 null [facility] [place] [facility] 2007-05-13 00:00:00 null [facility] [place] [facility] 2007-05-13 00:00:00 [facility] [place] [facility] 2007-05-23 00:00:00 [facility] [place] [address] 2007-05-23 00:00:00 [facility] [place] [address] 2007-05-23 00:00:00 TRIAMCINOLONE ACETONIDE [facility] [place] [address] 2007-05-23 00:00:00 TRIAMCINOLONE ACETONIDE [facility] [place] [address] 2007-05-23 00:00:00 TRIAMCINOLONE ACETONIDE [facility] [place] [address] 2007-05-23 00:00:00 [facility] [place] [facility] 2007-05-23 00:00:00 [facility] [place] [facility] 2007-05-23 00:00:00 TRIAMCINOLONE ACETONIDE [facility] [place] [facility] 2007-05-23 00:00:00 TRIAMCINOLONE ACETONIDE [facility] [place] [facility] 2007-07-23 00:00:00 null [facility] [place] [address] 2007-07-23 00:00:00 null [facility] [place] [address] 2007-07-23 00:00:00 FLUTICASONE PROPIONATE [facility]FA [facility] [place] [address] 2007-07-23 00:00:00 FLUTICASONE PROPIONATE HFA [facility] [place] [address] 2007-07-23 00:00:00 FLUTICASONE PROPIONATE HFA [facility] [place] [address] 2007-07-23 00:00:00 null [facility] [place] [facility] 2007-07-23 00:00:00 null [facility] [place] [facility] 2007-07-23 00:00:00 FLUTICASONE PROPIONATE HFA [facility] [place] [facility] 2007-07-23 00:00:00 FLUTICASONE PROPIONATE HFA [facility] [place] [facility] 2007-10-29 00:00:00 null [facility] [place] [address] 2007-10-29 00:00:00 null [facility] [place] [address] 2007-10-29 00:00:00 null [facility] [place] [address] 2007-10-29 00:00:00 null [facility] [place] [address] 2007-10-29 00:00:00 null [facility] [place] [address] 2007-10-29 00:00:00 null [facility] [place] [address] 2007-10-29 00:00:00 FLUTICASONE-SALMETEROL [facility] [place] [address] 2007-10-29 00:00:00 FLUTICASONE-SALMETEROL [facility] [address] [address] 2007-10-29 00:00:00 FLUTICASONE-SALMETEROL [facility] [place] [address] 2007-10-29 00:00:00 FLUTICASONE-SALMETEROL [facility] [place] [address] 2007-10-29 00:00:00 FLUTICASONE-SALMETEROL [facility] [address] [address] 2007-10-29 00:00:00 LEVALBUTEROL TARTRATE [facility] [place] [address] 2007-10-29 00:00:00 LEVALBUTEROL TARTRATE [facility] [place] [address] 2007-10-29 00:00:00 FLUTICASONE-SALMETEROL [facility] [address] [address] 2007-10-29 00:00:00 FLUTICASONE-SALMETEROL [facility] [address] [address] 2007-10-29 00:00:00 null [facility] [place] [facility] 2007-10-29 00:00:00 null [facility] [place] [facility] 2007-10-29 00:00:00 null [facility] [place] [facility] 2007-10-29 00:00:00 null [facility] [place] [facility] 2007-10-29 00:00:00 null [facility] [place] [facility] 2007-10-29 00:00:00 null [facility] [place] [facility] 2007-10-29 00:00:00 FLUTICASONE-SALMETEROL [facility] [place] [facility] 2007-10-29 00:00:00 FLUTICASONE-SALMETEROL [facility] [place] [facility] 2007-10-29 00:00:00 LEVALBUTEROL TARTRATE [facility] [place] [facility] 2007-10-29 00:00:00 LEVALBUTEROL TARTRATE [facility] [place] [facility] 2007-10-29 00:00:00 FLUTICASONE-SALMETEROL [facility] [place] [facility] 2007-10-29 00:00:00 FLUTICASONE-SALMETEROL [facility] [place] [facility] 2008-11-01 00:00:00 null [facility] [place] [address] 2008-11-01 00:00:00 null [facility] [place] [address] 2008-11-01 00:00:00 LEVOCETIRIZINE DIHYDROCHLORIDE [facility] [place] [address] 2008-11-01 00:00:00 LEVOCETIRIZINE DIHYDROCHLORIDE [facility] [address] [address] 2008-11-01 00:00:00 LEVOCETIRIZINE DIHYDROCHLORIDE [facility] [address] [address] 2008-11-01 00:00:00 null [facility] [place] [facility] 2008-11-01 00:00:00 null [facility] [place] [facility] 2008-11-01 00:00:00 LEVOCETIRIZINE DIHYDROCHLORIDE [facility] [place] [facility] 2009-09-26 00:00:00 null [facility] [place] [address] 2009-09-26 00:00:00 null [facility] [address] [address] 2009-09-26 00:00:00 null [facility] [address] [address] 2009-09-26 00:00:00 null [facility] [address] [address] 2009-09-26 00:00:00 null [facility] [address] [address] 2009-09-26 00:00:00 null [facility] [address] [address] 2009-09-26 00:00:00 ETONOGESTREL-ETHINYL ESTRADIOL [facility] [address] [address] 2009-09-26 00:00:00 FLUTICASONE FUROATE [facility] [place] [address] 2009-09-26 00:00:00 MODAFINIL [facility] [address] [address] 2009-09-26 00:00:00 MODAFINIL [facility] [address] [address] 2009-09-26 00:00:00 FLUTICASONE FUROATE [facility] [address] [address] 2009-09-26 00:00:00 ETONOGESTREL-ETHINYL ESTRADIOL [facility] [address] [address] 2009-09-26 00:00:00 FLUTICASONE FUROATE [facility] [address] [address] 2009-09-26 00:00:00 MODAFINIL [facility] [address] [address] 2009-09-26 00:00:00 null [facility] [place] [facility] 2009-09-26 00:00:00 null [facility] [place] [facility] 2009-09-26 00:00:00 null [facility] [place] [facility] 2009-09-26 00:00:00 null [facility] [place] [facility] 2009-09-26 00:00:00 null [facility] [place] [facility] 2009-09-26 00:00:00 null [facility] [place] [facility] 2009-09-26 00:00:00 ETONOGESTREL-ETHINYL ESTRADIOL [facility] [place] [facility] 2009-09-26 00:00:00 FLUTICASONE FUROATE [facility] [place] [facility] 2009-09-26 00:00:00 MODAFINIL [facility] [place] [facility] 2009-09-26 00:00:00 ETONOGESTREL-ETHINYL ESTRADIOL [facility] [place] [facility] 2009-09-26 00:00:00 MODAFINIL [facility] [place] [facility] 2010-03-07 00:00:00 null [facility] [address] [address] 2010-03-07 00:00:00 null [facility] [address] [address] 2010-03-07 00:00:00 AMOXICILLIN [facility] [address] [address] 2010-03-07 00:00:00 AMOXICILLIN [facility] [address] [address] 2010-03-07 00:00:00 AMOXICILLIN [facility] [address] [address] 2010-03-07 00:00:00 null [facility] [place] [facility] 2010-03-07 00:00:00 null [facility] [place] [facility] 2010-03-07 00:00:00 AMOXICILLIN [facility] [place] [facility] 2010-03-07 00:00:00 AMOXICILLIN [facility] [place] [facility] 2010-10-18 00:00:00 null [facility] [address] [address] 2010-10-18 00:00:00 null [facility] [address] [address] 2010-10-18 00:00:00 null [facility] [address] [address] 2010-10-18 00:00:00 null [facility] [address] [address] 2010-10-18 00:00:00 EPINEPHRINE [facility] [address] [address] 2010-10-18 00:00:00 EPINEPHRINE [facility] [address] [address] 2010-10-18 00:00:00 null [facility] [place] [facility] 2010-10-18 00:00:00 null [facility] [place] [facility] 2010-10-18 00:00:00 null [facility] [place] [facility] 2010-10-18 00:00:00 null [facility] [place] [facility] 2010-10-18 00:00:00 EPINEPHRINE [facility] [place] [facility] 2010-10-18 00:00:00 EPINEPHRINE [facility] [place] [facility] 2010-11-13 00:00:00 null [facility] [address] [address] 2010-11-13 00:00:00 null [facility] [address] [address] 2010-11-13 00:00:00 null [facility] [address] [address] 2010-11-13 00:00:00 null [facility] [address] [address] 2010-11-13 00:00:00 null [facility] [address] [address] 2010-11-13 00:00:00 null [facility] [address] [address] 2010-11-13 00:00:00 AZITHROMYCIN [facility] [address] [address] 2010-11-13 00:00:00 BENZONATATE [facility] [address] [address] 2010-11-13 00:00:00 CHLORPHENIRAMINE-HYDROCODONE [facility] [address] [address] 2010-11-13 00:00:00 CHLORPHENIRAMINE-HYDROCODONE [facility] [address] 2010-11-13 00:00:00 AZITHROMYCIN [facility] [address] 2010-11-13 00:00:00 CHLORPHENIRAMINE-HYDROCODONE [facility] [address] 2010-11-13 00:00:00 AZITHROMYCIN [facility] [address] [address] 2010-11-13 00:00:00 AZITHROMYCIN [facility] [address] 2010-11-13 00:00:00 null [facility] [place] [facility] 2010-11-13 00:00:00 null [facility] [place] [facility] 2010-11-13 00:00:00 null [facility] [place] [facility] 2010-11-13 00:00:00 null [facility] [place] [facility] 2010-11-13 00:00:00 null [facility] [place] [facility] 2010-11-13 00:00:00 null [facility] [place] [facility] 2010-11-13 00:00:00 AZITHROMYCIN [facility] [place] [facility] 2010-11-13 00:00:00 BENZONATATE [facility] [place] [facility] 2010-11-13 00:00:00 CHLORPHENIRAMINE-HYDROCODONE [facility] [place] [facility] 2010-11-13 00:00:00 CHLORPHENIRAMINE-[facility]DROCODONE [facility] [place] [facility] 2010-11-13 00:00:00 AZITHROMYCIN [facility] [place] [facility] 2011-10-09 00:00:00 null [facility] [address] 2011-10-09 00:00:00 null [facility] [address] 2011-10-09 00:00:00 SULFAMETHOXAZOLE-TRIMETHOPRIM [facility] [address] 2011-10-09 00:00:00 SULFAMETHOXAZOLE-TRIMETHOPRIM [facility] [address] 2011-10-09 00:00:00 null [facility] [place] [facility] 2011-10-09 00:00:00 [facility] [place] [facility] 2011-10-09 00:00:00 SULFAMETHOXAZOLE-TRIMETHOPRIM [facility] [place] [facility] 2011-10-09 00:00:00 SULFAMETHOXAZOLE-TRIMETHOPRIM [facility] [place] [facility] 2011-10-11 00:00:00 null [facility] [address] 2011-10-11 00:00:00 null [facility] [address] 2011-10-11 00:00:00 [facility]OXACIN [facility] [address] 2011-10-11 00:00:00 LEVOFLOXACIN [facility] [address] 2011-10-11 00:00:00 LEVOFLOXACIN [facility] [address] 2011-10-11 00:00:00 null [facility] [place] [facility] 2011-10-11 00:00:00 null [facility] [place] [facility] 2011-10-11 00:00:00 LEVOFLOXACIN [facility] [place] [facility] 2011-10-11 00:00:00 LEVOFLOXACIN [facility] [place] [facility] 2012-01-08 00:00:00 null [facility] [address] 2012-01-08 00:00:00 null [facility] [address] 2012-01-08 00:00:00 ALBUTEROL SULFATE [facility] [address] 2012-01-08 00:00:00 ALBUTEROL SULFATE [facility] [address] 2012-01-08 00:00:00 ALBUTEROL SULFATE [facility] [address] 2012-01-08 00:00:00 ALBUTEROL SULFATE [facility] [address] 2012-01-08 00:00:00 ALBUTEROL SULFATE [facility] [address] 2012-01-08 00:00:00 null [facility] [place] [facility] 2012-01-08 00:00:00 null [facility] [place] [facility] 2012-01-08 00:00:00 ALBUTEROL SULFATE [facility] [place] [facility] 2012-01-08 00:00:00 ALBUTEROL SULFATE [facility] [place] [facility] 2012-01-22 00:00:00 null [facility] [address] 2012-01-22 00:00:00 null [facility] [address] 2012-01-22 00:00:00 TERBINAFINE HCL [facility] [address] 2012-01-22 00:00:00 TERBINAFINE HCL [facility] [address] 2012-01-22 00:00:00 TERBINAFINE HCL [facility] [address] 2012-01-22 00:00:00 null [facility] [place] [facility] 2012-01-22 00:00:00 null [facility] [place] [facility] 2012-01-22 00:00:00 TERBINAFINE HCL [facility] [place] [facility] 2012-01-22 00:00:00 TERBINAFINE HCL [facility] 2012-06-06 00:00:00 null [facility] [address] 2012-06-06 00:00:00 null [facility] [address] 2012-06-06 00:00:00 MODAFINIL [facility] [address] 2012-06-06 00:00:00 MODAFINIL [facility] [address] 2012-06-06 00:00:00 MODAFINIL [facility] [address] 2012-06-06 00:00:00 null [facility] 2012-06-06 00:00:00 null [facility] 2012-06-06 00:00:00 MODAFINIL [facility] 2012-06-06 00:00:00 MODAFINIL [facility] 2012-07-11 00:00:00 null [facility] [address] 2012-07-11 00:00:00 null [facility] [address] 2012-07-11 00:00:00 AMOXICILLIN-POT CLAVULANATE [facility] 2012-07-11 00:00:00 AMOXICILLIN-POT CLAVULANATE [facility] [address] 2012-07-11 00:00:00 AMOXICILLIN-POT CLAVULANATE [facility] [address] 2012-07-11 00:00:00 null [facility] 2012-07-11 00:00:00 null [facility] 2012-07-11 00:00:00 AMOXICILLIN-POT CLAVULANATE [facility] 2012-07-11 00:00:00 AMOXICILLIN-POT CLAVULANATE [facility] 2012-09-11 00:00:00 null [facility] [address] 2012-09-11 00:00:00 null [facility] [address] 2012-09-11 00:00:00 FLUCONAZOLE [facility] [address] 2012-09-11 00:00:00 FLUCONAZOLE [facility] [address] 2012-09-11 00:00:00 FLUCONAZOLE [facility] [address] 2012-09-11 00:00:00 null [facility] 2012-09-11 00:00:00 null [facility] 2012-09-11 00:00:00 FLUCONAZOLE [facility] 2012-09-11 00:00:00 FLUCONAZOLE [facility] 2012-10-22 00:00:00 null [facility] [address] 2012-10-22 00:00:00 null [facility] [address] 2012-10-22 00:00:00 CEPHALEXIN [facility] [address] 2012-10-22 00:00:00 CEPHALEXIN [facility] [address] 2012-10-22 00:00:00 CEPHALEXIN [facility] [address] 2012-10-22 00:00:00 null [facility] 2012-10-22 00:00:00 null [facility] 2012-10-22 00:00:00 CEPHALEXIN [facility] 2012-10-22 00:00:00 CEPHALEXIN [facility] 2012-12-09 00:00:00 null [facility] [address] 2012-12-09 00:00:00 null [facility] [address] 2012-12-09 00:00:00 FLUCONAZOLE [facility] [address] 2012-12-09 00:00:00 FLUCONAZOLE [facility] [address] 2012-12-09 00:00:00 FLUCONAZOLE [facility] [address] 2012-12-09 00:00:00 null [facility] 2012-12-09 00:00:00 null [facility] 2012-12-09 00:00:00 FLUCONAZOLE [facility] 2012-12-09 00:00:00 FLUCONAZOLE [facility] 2012-12-29 00:00:00 null [facility] [address] 2012-12-29 00:00:00 null [facility] [address] 2012-12-29 00:00:00 null [facility] [address] 2012-12-29 00:00:00 null [facility] [address] 2012-12-29 00:00:00 FLUCONAZOLE [facility] [address] 2012-12-29 00:00:00 NYSTATIN [facility] [address] 2012-12-29 00:00:00 FLUCONAZOLE [facility] [address] 2012-12-29 00:00:00 FLUCONAZOLE [facility] [address] 2012-12-29 00:00:00 NYSTATIN [facility] [address] 2012-12-29 00:00:00 null [facility] 2012-12-29 00:00:00 null [facility] 2012-12-29 00:00:00 null [facility] 2012-12-29 00:00:00 null [facility] 2012-12-29 00:00:00 FLUCONAZOLE [facility] 2012-12-29 00:00:00 NYSTATIN [facility] 2012-12-29 00:00:00 FLUCONAZOLE [facility] 2012-12-29 00:00:00 NYSTATIN [facility] 2013-01-06 00:00:00 null [facility] [address] 2013-01-06 00:00:00 null [facility] [address] 2013-01-06 00:00:00 CYCLOBENZAPRINE HCL [facility] 2013-01-06 00:00:00 null [facility] 2013-01-06 00:00:00 null [facility] 2013-01-06 00:00:00 CYCLOBENZAPRINE HCL [facility] 2013-03-03 00:00:00 null [facility] [address] 2013-03-03 00:00:00 null [facility] [address] 2013-03-03 00:00:00 FLUOCINONIDE [facility] [address] 2013-03-03 00:00:00 FLUOCINONIDE [facility] [address] 2013-03-03 00:00:00 FLUOCINONIDE [facility] [address] 2013-03-03 00:00:00 null [facility] 2013-03-03 00:00:00 null [facility] 2013-03-03 00:00:00 FLUOCINONIDE [facility] 2013-03-03 00:00:00 FLUOCINONIDE [facility] 2013-04-03 00:00:00 null [facility] [address] 2013-04-03 00:00:00 null [facility] [address] 2013-04-03 00:00:00 MODAFINIL [facility] [address] 2013-04-03 00:00:00 MODAFINIL [facility] [address] 2013-04-03 00:00:00 MODAFINIL [facility] [address] 2013-04-03 00:00:00 MODAFINIL [facility] [address] 2013-04-03 00:00:00 null [facility] 2013-04-03 00:00:00 null [facility] 2013-04-03 00:00:00 MODAFINIL [facility] 2013-04-03 00:00:00 MODAFINIL [facility] 2013-04-13 00:00:00 null [facility] [address] 2013-04-13 00:00:00 null [facility] [address] 2013-04-13 00:00:00 null [facility] [address] 2013-04-13 00:00:00 null [facility] [address] 2013-04-13 00:00:00 BENZONATATE [facility] [address] 2013-04-13 00:00:00 CODEINE-GUAIFENESIN [facility] [address] 2013-04-13 00:00:00 CODEINE-GUAIFENESIN [facility] [address] 2013-04-13 00:00:00 CODEINE-GUAIFENESIN [facility] [address] 2013-04-13 00:00:00 null [facility] 2013-04-13 00:00:00 null [facility] 2013-04-13 00:00:00 null [facility] 2013-04-13 00:00:00 null [facility] 2013-04-13 00:00:00 BENZONATATE [facility] 2013-04-13 00:00:00 CODEINE-GUAIFENESIN [facility] 2013-04-13 00:00:00 CODEINE-GUAIFENESIN [facility] 2013-08-13 00:00:00 null [facility] [address] 2013-08-13 00:00:00 null [facility] [address] 2013-08-13 00:00:00 AZITHROMYCIN [facility] [address] 2013-08-13 00:00:00 AZITHROMYCIN [facility] [address] 2013-08-13 00:00:00 AZITHROMYCIN [facility] [address] 2013-08-13 00:00:00 AZITHROMYCIN [facility] [address] 2013-08-13 00:00:00 null [facility] 2013-08-13 00:00:00 null [facility] 2013-08-13 00:00:00 AZITHROMYCIN [facility] 2013-08-13 00:00:00 AZITHROMYCIN [facility] 2013-08-24 00:00:00 null [facility] [address] 2013-08-24 00:00:00 null [facility] [address] 2013-08-24 00:00:00 null [facility] [address] 2013-08-24 00:00:00 null [facility] [address] 2013-08-24 00:00:00 null [facility] [address] 2013-08-24 00:00:00 null [facility] [address] 2013-08-24 00:00:00 null [facility] [address] 2013-08-24 00:00:00 null [facility] [address] 2013-08-24 00:00:00 null [facility] [address] 2013-08-24 00:00:00 null [facility] [address] 2013-08-24 00:00:00 PROBIOTIC PRODUCT [facility] [address] 2013-08-24 00:00:00 MULTIPLE VITAMINS-MINERALS [facility] [address] [address] 2013-08-24 00:00:00 CHOLECALCIFEROL [facility] [address] 2013-08-24 00:00:00 CALCIUM CARBONATE-VITAMIN D [facility] [address] 2013-08-24 00:00:00 DIGESTIVE AIDS [facility]TURE [facility] [address] [address] 2013-08-24 00:00:00 PROBIOTIC PRODUCT [facility] [address] 2013-08-24 00:00:00 null [facility] 2013-08-24 00:00:00 null [facility] 2013-08-24 00:00:00 null [facility] 2013-08-24 00:00:00 null [facility] 2013-08-24 00:00:00 null [facility] 2013-08-24 00:00:00 null [facility] 2013-08-24 00:00:00 null [facility] 2013-08-24 00:00:00 null [facility] 2013-08-24 00:00:00 null [facility] 2013-08-24 00:00:00 null [facility] 2013-08-24 00:00:00 MULTIPLE VITAMINS-MINERALS [facility] [facility] 2013-08-24 00:00:00 CHOLECALCIFEROL [facility] 2013-08-24 00:00:00 CALCIUM CARBONATE-[facility]ITAMIN D [facility] [place] [facility] 2013-08-24 00:00:00 [facility] [place] [facility] 2013-08-24 00:00:00 PROBIOTIC PRODUCT [facility] 2014-01-12 00:00:00 null [facility] [address] 2014-01-12 00:00:00 null [facility] [address] 2014-01-12 00:00:00 FLUCONAZOLE [facility] [address] 2014-01-12 00:00:00 FLUCONAZOLE [facility] [address] 2014-01-12 00:00:00 FLUCONAZOLE [facility] [address] 2014-01-12 00:00:00 null [facility] 2014-01-12 00:00:00 null [facility] 2014-01-12 00:00:00 FLUCONAZOLE [facility] 2014-01-12 00:00:00 FLUCONAZOLE [facility] 2014-03-22 00:00:00 null [facility] [address] 2014-03-22 00:00:00 null [facility] [address] 2014-03-22 00:00:00 ETONOGESTREL-ETHINYL ESTRADIOL [facility] [address] 2014-03-22 00:00:00 ETONOGESTREL-ETHINYL ESTRADIOL [facility] [address] 2014-03-22 00:00:00 ETONOGESTREL-ETHINYL ESTRADIOL [facility] [address] 2014-03-22 00:00:00 null [facility] 2014-03-22 00:00:00 null [facility] 2014-03-22 00:00:00 ETONOGESTREL-ETHINYL ESTRADIOL [facility] [facility] 2014-03-22 00:00:00 ETONOGESTREL-ETHINYL ESTRADIOL [facility] [facility] 2014-03-23 00:00:00 null [facility] [address] 2014-03-23 00:00:00 null [facility] [address] 2014-03-23 00:00:00 TRIAMCINOLONE ACETONIDE [facility] [address] 2014-03-23 00:00:00 TRIAMCINOLONE [facility] [address] 2014-03-23 00:00:00 [facility]CINOLONE [facility] [address] 2014-03-23 00:00:00 null [facility] 2014-03-23 00:00:00 null [facility] 2014-03-23 00:00:00 [facility]INOLONE [facility] [facility] 2014-03-23 00:00:00 TRIAMCINOLONE [facility] [place] [facility] 2014-04-13 00:00:00 null [facility] [address] 2014-04-13 00:00:00 null [facility] [address] 2014-04-13 00:00:00 null [facility] [address] 2014-04-13 00:00:00 null [facility] [address] 2014-04-13 00:00:00 null [facility] [address] 2014-04-13 00:00:00 null [facility] [address] 2014-04-13 00:00:00 FLUTICASONE FUROATE [facility] [address] [address] 2014-04-13 00:00:00 IPRATROPIUM BROMIDE [facility] [address] 2014-04-13 00:00:00 [facility]AMCINOLONE [facility] [address] 2014-04-13 00:00:00 TRIAMCINOLONE [facility] [address] 2014-04-13 00:00:00 FLUTICASONE FUROATE [facility] [address] [address] 2014-04-13 00:00:00 [facility]INOLONE [facility] [address] 2014-04-13 00:00:00 IPRATROPIUM BROMIDE [facility] [address] 2014-04-13 00:00:00 null [facility] 2014-04-13 00:00:00 null [facility] 2014-04-13 00:00:00 null [facility] 2014-04-13 00:00:00 null [facility] 2014-04-13 00:00:00 null [facility] 2014-04-13 00:00:00 null [facility] 2014-04-13 00:00:00 FL[facility]ICASONE [facility] [place] [facility] 2014-04-13 00:00:00 IPRATROPIUM BROMIDE [facility] [facility] 2014-04-13 00:00:00 [facility]AMCINOLONE [facility]IDE [facility] [place] [facility] 2014-04-13 00:00:00 [facility]CINOLONE [facility] [place] [facility] 2014-07-08 00:00:00 null [facility] [address] 2014-07-08 00:00:00 null [facility] [address] 2014-07-08 00:00:00 null [facility] [address] 2014-07-08 00:00:00 null [facility] [address] 2014-07-08 00:00:00 METRONIDAZOLE [facility] [address] 2014-07-08 00:00:00 METRONIDAZOLE [facility] [address] 2014-07-08 00:00:00 FLUCONAZOLE [facility] [address] 2014-07-08 00:00:00 FLUCONAZOLE [facility] [address] 2014-07-08 00:00:00 FLUCONAZOLE [facility] [address] 2014-07-08 00:00:00 METRONIDAZOLE [facility] [address] 2014-07-08 00:00:00 null [facility] 2014-07-08 00:00:00 null [facility] 2014-07-08 00:00:00 null [facility] 2014-07-08 00:00:00 null [facility] 2014-07-08 00:00:00 METRONIDAZOLE [facility] 2014-07-08 00:00:00 FLUCONAZOLE [facility] 2014-07-08 00:00:00 FLUCONAZOLE [facility] 2014-07-08 00:00:00 METRONIDAZOLE [facility] 2014-08-06 00:00:00 null [facility] [address] 2014-08-06 00:00:00 null [facility] [address] [address] 2014-08-06 00:00:00 null [facility] [address] 2014-08-06 00:00:00 null [facility] [address] 2014-08-06 00:00:00 NYSTATIN-TRIAMCINOLONE [facility] [address] 2014-08-06 00:00:00 NYSTATIN-TRIAMCINOLONE [facility] [address] 2014-08-06 00:00:00 FLUCONAZOLE [facility] [address] 2014-08-06 00:00:00 FLUCONAZOLE [facility] [address] 2014-08-06 00:00:00 NYSTATIN-TRIAMCINOLONE [facility] [address] 2014-08-06 00:00:00 FLUCONAZOLE [facility] 2014-08-06 00:00:00 null [facility] 2014-08-06 00:00:00 null [facility] 2014-08-06 00:00:00 null [facility] 2014-08-06 00:00:00 null [facility] 2014-08-06 00:00:00 NYSTATIN-TRIAMCINOLONE [facility] 2014-08-06 00:00:00 FLUCONAZOLE [facility] 2014-08-06 00:00:00 NYSTATIN-TRIAMCINOLONE [facility] 2014-08-06 00:00:00 FLUCONAZOLE [facility] 2014-09-17 00:00:00 null [facility] [address] 2014-09-17 00:00:00 null [facility] [address] 2014-09-17 00:00:00 TRIAMCINOLONE ACETONIDE [facility] [address] 2014-09-17 00:00:00 TRIAMCINOLONE ACETONIDE [facility] [address] 2014-09-17 00:00:00 TRIAMCINOLONE ACETONIDE [facility] [address] 2014-09-17 00:00:00 null [facility] 2014-09-17 00:00:00 null [facility] 2014-09-17 00:00:00 TRIAMCINOLONE ACETONIDE [facility] 2014-09-17 00:00:00 TRIAMCINOLONE ACETONIDE [facility] 2014-11-05 00:00:00 null [facility] [address] 2014-11-05 00:00:00 null [facility] [address] 2014-11-05 00:00:00 HYOSCYAMINE SULFATE [facility] [address] 2014-11-05 00:00:00 HYOSCYAMINE SULFATE [facility] [address] 2014-11-05 00:00:00 HYOSCYAMINE SULFATE [facility] [address] 2014-11-05 00:00:00 null [facility] 2014-11-05 00:00:00 null [facility] 2014-11-05 00:00:00 HYOSCYAMINE SULFATE [facility] 2014-11-05 00:00:00 HYOSCYAMINE SULFATE [facility] 2015-07-12 00:00:00 null [facility] [address] 2015-07-12 00:00:00 null [facility] [address] 2015-07-12 00:00:00 TERBINAFINE HCL [facility] [address] 2015-07-12 00:00:00 TERBINAFINE HCL [facility] [address] 2015-07-12 00:00:00 TERBINAFINE HCL [facility] [address] 2015-07-12 00:00:00 null [facility] 2015-07-12 00:00:00 null [facility] 2015-07-12 00:00:00 TERBINAFINE HCL [facility] 2015-07-12 00:00:00 TERBINAFINE HCL [facility] 2015-10-10 00:00:00 null [facility] [address] 2015-10-10 00:00:00 null [facility] [address] 2015-10-10 00:00:00 null [facility] [address] 2015-10-10 00:00:00 null [facility] [address] 2015-10-10 00:00:00 AMOXICILLIN-POT CLAVULANATE [facility] [address] 2015-10-10 00:00:00 TERCONAZOLE [facility] [address] 2015-10-10 00:00:00 AMOXICILLIN-POT CLAVULANATE [facility] [address] 2015-10-10 00:00:00 TERCONAZOLE [facility] [address] 2015-10-10 00:00:00 AMOXICILLIN-POT CLAVULANATE [facility] [address] 2015-10-10 00:00:00 null [facility] 2015-10-10 00:00:00 null [facility] 2015-10-10 00:00:00 null [facility] 2015-10-10 00:00:00 null [facility] 2015-10-10 00:00:00 AMOXICILLIN-POT CLAVULANATE [facility] 2015-10-10 00:00:00 TERCONAZOLE [facility] 2015-10-10 00:00:00 TERCONAZOLE [facility] 2015-10-10 00:00:00 AMOXICILLIN-POT CLAVULANATE [facility] 2016-03-29 00:00:00 null [facility] [address] 2016-03-29 00:00:00 null [facility] [address] 2016-03-29 00:00:00 PREDNISONE [facility] [address] 2016-03-29 00:00:00 PREDNISONE [facility] [address] 2016-03-29 00:00:00 PREDNISONE [facility] [address] 2016-03-29 00:00:00 null [facility] 2016-03-29 00:00:00 null [facility] 2016-03-29 00:00:00 PREDNISONE [facility] 2016-03-29 00:00:00 PREDNISONE [facility] 2016-05-24 00:00:00 null [facility] [address] 2016-05-24 00:00:00 null [facility] [address] 2016-05-24 00:00:00 null [facility] [address] 2016-05-24 00:00:00 null [facility] [address] 2016-05-24 00:00:00 PREDNISONE [facility] [address] 2016-05-24 00:00:00 AMOXICILLIN-POT CLAVULANATE [facility] [address] 2016-05-24 00:00:00 PREDNISONE [facility] [address] 2016-05-24 00:00:00 AMOXICILLIN-POT CLAVULANATE [facility] [address] 2016-05-24 00:00:00 PREDNISONE [facility] [address] 2016-05-24 00:00:00 AMOXICILLIN-POT CLAVULANATE [facility] [address] 2016-05-24 00:00:00 null [facility] 2016-05-24 00:00:00 null [facility] 2016-05-24 00:00:00 null [facility] 2016-05-24 00:00:00 null [facility] 2016-05-24 00:00:00 PREDNISONE [facility] 2016-05-24 00:00:00 AMOXICILLIN-POT CLAVULANATE [facility] 2016-05-24 00:00:00 PREDNISONE [facility] 2016-05-24 00:00:00 AMOXICILLIN-POT CLAVULANATE [facility] 2016-06-07 00:00:00 null [facility] [address] 2016-06-07 00:00:00 null [facility] [address] 2016-06-07 00:00:00 CICLOPIROX [facility] [address] 2016-06-07 00:00:00 CICLOPIROX [facility] [address] 2016-06-07 00:00:00 null [facility] 2016-06-07 00:00:00 null [facility] 2016-06-07 00:00:00 CICLOPIROX [facility] 2016-06-07 00:00:00 CICLOPIROX [facility] 2016-08-13 00:00:00 null [facility] [address] 2016-08-13 00:00:00 null [facility] [address] 2016-08-13 00:00:00 null [facility] [facility] 2016-08-13 00:00:00 null [facility] [facility] [address] 2016-08-13 00:00:00 RANITIDINE HCL [facility] [address] 2016-08-13 00:00:00 LEVOCETIRIZINE DIHYDROCHLORIDE [facility] [address] 2016-08-13 00:00:00 RANITIDINE HCL [facility] [address] 2016-08-13 00:00:00 RANITIDINE HCL [facility] [address] 2016-08-13 00:00:00 LEVOCETIRIZINE DIHYDROCHLORIDE [facility] [address] 2016-08-13 00:00:00 null [facility] 2016-08-13 00:00:00 null [facility] 2016-08-13 00:00:00 null [facility] 2016-08-13 00:00:00 null [facility] 2016-08-13 00:00:00 RANITIDINE HCL [facility] 2016-08-13 00:00:00 LEVOCETIRIZINE DIHYDROCHLORIDE [facility] 2016-08-13 00:00:00 RANITIDINE HCL [facility] 2016-08-31 00:00:00 null [facility] [address] 2016-08-31 00:00:00 null [facility] [address] 2016-08-31 00:00:00 ESTRADIOL [facility] 2016-08-31 00:00:00 ESTRADIOL [facility] [address] 2016-08-31 00:00:00 null [facility] 2016-08-31 00:00:00 null [facility] 2016-08-31 00:00:00 ESTRADIOL [facility] 2016-08-31 00:00:00 ESTRADIOL [facility] 2016-09-07 00:00:00 null [facility] 2016-09-07 00:00:00 null [facility] 2016-09-07 00:00:00 METRONIDAZOLE [facility] 2016-09-07 00:00:00 METRONIDAZOLE [facility] 2016-09-07 00:00:00 METRONIDAZOLE [facility] 2016-09-07 00:00:00 null [facility] 2016-09-07 00:00:00 null [facility] 2016-09-07 00:00:00 METRONIDAZOLE [facility] 2016-09-07 00:00:00 METRONIDAZOLE [facility] 2016-09-10 00:00:00 null [facility] 2016-09-10 00:00:00 null [facility] 2016-09-10 00:00:00 NYSTATIN [facility] 2016-09-10 00:00:00 NYSTATIN [facility] 2016-09-10 00:00:00 NYSTATIN [facility] [address] 2016-09-10 00:00:00 null [facility] 2016-09-10 00:00:00 null [facility] 2016-09-10 00:00:00 NYSTATIN [facility] 2016-09-10 00:00:00 NYSTATIN [facility] 2016-09-14 00:00:00 null [facility] 2016-09-14 00:00:00 null [facility] 2016-09-14 00:00:00 CLOTRIMAZOLE [facility] 2016-09-14 00:00:00 CLOTRIMAZOLE [facility] 2016-09-14 00:00:00 null [facility] 2016-09-14 00:00:00 null [facility] 2016-09-14 00:00:00 CLOTRIMAZOLE [facility] 2016-09-14 00:00:00 CLOTRIMAZOLE [facility] 2016-10-29 00:00:00 null [facility] [address] 2016-10-29 00:00:00 null [facility] [address] 2016-10-29 00:00:00 DICYCLOMINE HCL [facility] [address] 2016-10-29 00:00:00 DICYCLOMINE HCL [facility] [address] 2016-10-29 00:00:00 null [facility] 2016-10-29 00:00:00 null [facility] 2016-10-29 00:00:00 DICYCLOMINE HCL [facility] 2016-12-06 00:00:00 null [facility] 2016-12-06 00:00:00 null [facility] 2016-12-06 00:00:00 null [facility] 2016-12-06 00:00:00 null [facility] 2016-12-06 00:00:00 null [facility] 2016-12-06 00:00:00 null [facility] [address] 2016-12-06 00:00:00 null [facility] 2016-12-06 00:00:00 null [facility] 2016-12-06 00:00:00 [facility] [address] 2016-12-06 00:00:00 [facility] [address] 2016-12-06 00:00:00 BUDESONIDE-FORMOTEROL [facility] [address] 2016-12-06 00:00:00 [facility]ASONE[facility]OL [facility] [address] 2016-12-06 00:00:00 BECLOMETHASONE DIPROPIONATE [facility] [address] 2016-12-06 00:00:00 BUDESONIDE-FORMOTEROL [facility] [address] 2016-12-06 00:00:00 BECLOMETHASONE DIPROPIONATE [facility] [address] 2016-12-06 00:00:00 [facility] [address] 2016-12-06 00:00:00 FLUTICASONE[facility]OL [facility] [address] 2016-12-06 00:00:00 null [facility] 2016-12-06 00:00:00 null [facility] 2016-12-06 00:00:00 null [facility] 2016-12-06 00:00:00 null [facility] 2016-12-06 00:00:00 null [facility] 2016-12-06 00:00:00 null [facility] 2016-12-06 00:00:00 [facility] 2016-12-06 00:00:00 [facility] 2016-12-06 00:00:00 FLUTICASONE[facility]METEROL [facility] 2016-12-06 00:00:00 FLUTICASONE-[facility]ALMETEROL [facility] 2016-12-06 00:00:00 BUDESONIDE-FORMOTEROL [facility]ATE [facility] 2016-12-06 00:00:[address] [facility] 2016-12-06 00:00:00 BUDESONIDE-FORMOTEROL [facility] 2016-12-06 00:00:00 FLUTICASONE-SALMETEROL [facility] 2016-12-06 00:00:00 [facility]ICASONE[facility]OL [facility] 2017-02-06 00:00:00 [facility] [address] 2017-02-06 00:00:00 [facility] [address] 2017-02-06 00:00:00 LEVOCETIRIZINE DIHYDROCHLORIDE [facility] [address] 2017-02-06 00:00:00 LEVOCETIRIZINE DIHYDROCHLORIDE [facility] [address] 2017-02-06 00:00:00 null [facility] 2017-02-06 00:00:00 null [facility] 2017-02-06 00:00:00 LEVOCETIRIZINE DIHYDROCHLORIDE [facility] 2017-03-20 00:00:00 null [facility] [address] 2017-03-20 00:00:00 null [facility] 2017-03-20 00:00:00 ALBUTEROL SULFATE [facility] 2017-03-20 00:00:00 ALBUTEROL SULFATE [facility] 2017-03-20 00:00:00 ALBUTEROL SULFATE [facility] 2017-03-20 00:00:00 null [facility] 2017-03-20 00:00:00 null [facility] 2017-03-20 00:00:00 ALBUTEROL SULFATE [facility] 2017-03-20 00:00:00 ALBUTEROL SULFATE [facility] 2017-06-24 00:00:00 null [facility] 2017-06-24 00:00:00 null [facility] 2017-06-24 00:00:00 FLUCONAZOLE [facility] 2017-06-24 00:00:00 FLUCONAZOLE [facility] 2017-06-24 00:00:00 FLUCONAZOLE [facility] 2017-06-24 00:00:00 null [facility] 2017-06-24 00:00:00 null [facility] 2017-06-24 00:00:00 FLUCONAZOLE [facility] 2017-06-24 00:00:00 FLUCONAZOLE [facility] 2017-08-16 00:00:00 null [facility] 2017-08-16 00:00:00 null [facility] 2017-08-16 00:00:00 null [facility] 2017-08-16 00:00:00 null [facility] 2017-09-19 00:00:00 null [facility] 2017-09-19 00:00:00 null [facility] 2017-09-19 00:00:00 null [facility] 2017-09-19 00:00:00 null [facility] 2017-09-19 00:00:00 null [facility] 2017-09-19 00:00:00 null [facility] 2017-09-19 00:00:00 MONTELUKAST SODIUM [facility] 2017-09-19 00:00:00 FLUTICASONE FUROATE [facility] [address] 2017-09-19 00:00:00 TRIAMCINOLONE ACETONIDE [facility] [address] 2017-09-19 00:00:00 FLUTICASONE FUROATE [facility] [address] 2017-09-19 00:00:00 TRIAMCINOLONE ACETONIDE [facility] [address] 2017-09-19 00:00:00 MONTELUKAST SODIUM [facility] [address] 2017-09-19 00:00:00 null [facility] 2017-09-19 00:00:00 null [facility] 2017-09-19 00:00:00 null [facility] 2017-09-19 00:00:00 null [facility] 2017-09-19 00:00:00 null [facility] 2017-09-19 00:00:00 null [facility] 2017-09-19 00:00:00 MONTELUKAST SODIUM [facility] 2017-09-19 00:00:00 FL[facility]ICASONE [facility]ATE [facility] 2017-09-19 00:00:00 TRIAMCINOLONE ACETONIDE [facility] 2017-09-19 00:00:00 TRIAMCINOLONE ACETONIDE [facility] 2017-09-19 00:00:00 MONTELUKAST SODIUM [facility] 2017-12-31 00:00:00 null [facility] 2017-12-31 00:00:00 null [facility] [address] 2017-12-31 00:00:00 FLUCONAZOLE [facility] [address] 2017-12-31 00:00:00 FLUCONAZOLE [facility] [address] 2017-12-31 00:00:00 null [facility] 2017-12-31 00:00:00 null [facility] 2017-12-31 00:00:00 FLUCONAZOLE [facility] 2017-12-31 00:00:00 FLUCONAZOLE [facility] 2018-01-13 00:00:00 null [facility] 2018-01-13 00:00:00 null [facility] 2018-01-13 00:00:00 AMOXICILLIN-POT CLAVULANATE [facility] [address] 2018-01-13 00:00:00 AMOXICILLIN-POT CLAVULANATE [facility] [address] 2018-01-13 00:00:00 null [facility] 2018-01-13 00:00:00 null [facility] 2018-01-13 00:00:00 AMOXICILLIN-POT CLAVULANATE [facility] 2018-01-13 00:00:00 AMOXICILLIN-POT CLAVULANATE [facility] 2018-01-29 00:00:00 null [facility] [address] 2018-01-29 00:00:00 null [facility] [address] 2018-01-29 00:00:00 METHYLPREDNISOLONE [facility] [address] 2018-01-29 00:00:00 METHYLPREDNISOLONE [facility] [address] 2018-01-29 00:00:00 null [facility] 2018-01-29 00:00:00 null [facility] 2018-01-29 00:00:00 METHYLPREDNISOLONE [facility] 2018-01-29 00:00:00 METHYLPREDNISOLONE [facility] 2018-02-11 00:00:00 null [facility] [address] 2018-02-11 00:00:00 null [facility] [address] 2018-02-11 00:00:00 null [facility] [address] 2018-02-11 00:00:00 null [facility] [address] 2018-02-11 00:00:00 null [facility] [address] 2018-02-11 00:00:00 null [facility] [address] 2018-02-11 00:00:00 [id number] [facility] [address] 2018-02-11 00:00:00 LACTOBACILLUS [facility] [address] 2018-02-11 00:00:00 MULTIPLE VITAMINS-MINERALS [facility] [address] 2018-02-11 00:00:00 [id number] [facility] [address] 2018-02-11 00:00:00 [id number] [facility] [address] 2018-02-11 00:00:00 null [facility] 2018-02-11 00:00:00 null [facility] 2018-02-11 00:00:00 null [facility] 2018-02-11 00:00:00 null [facility] 2018-02-11 00:00:00 null [facility] 2018-02-11 00:00:00 null [facility] 2018-02-11 00:00:00 [id number] [facility] 2018-02-11 00:00:00 LACTOBACILLUS [facility] 2018-02-11 00:00:00 MULTIPLE VITAMINS-MINERALS [facility] 2018-02-11 00:00:00 [id number] [facility] 2018-03-14 00:00:00 null [facility] [address] 2018-03-14 00:00:00 null [facility] [address] 2018-03-14 00:00:00 null [facility] [address] 2018-03-14 00:00:00 null [facility] [address] 2018-03-14 00:00:00 AZITHROMYCIN [facility] [address] 2018-03-14 00:00:00 AMOXICILLIN[facility]POT [facility] [address] 2018-03-14 00:00:00 AMOXICILLIN-POT CLAVULANATE [facility] [address] 2018-03-14 00:00:00 AZITHROMYCIN [facility] [address] 2018-03-14 00:00:00 null [facility] 2018-03-14 00:00:00 null [facility] 2018-03-14 00:00:00 null [facility] 2018-03-14 00:00:00 null [facility] 2018-03-14 00:00:00 AZITHROMYCIN [facility] 2018-03-14 00:00:00 AMOXICILLIN-POT CLAVULANATE [facility] 2018-03-14 00:00:00 AMOXICILLIN-POT CLAVULANATE [facility] 2018-03-14 00:00:00 AZITHROMYCIN [facility] 2018-07-21 00:00:00 null [facility] [address] 2018-07-21 00:00:00 null [facility] [address] 2018-07-21 00:00:00 ESTRADIOL [facility] [address] 2018-07-21 00:00:00 ESTRADIOL [facility] [address] 2018-07-21 00:00:00 null [facility] 2018-07-21 00:00:00 null [facility] 2018-07-21 00:00:00 ESTRADIOL [facility] 2018-07-21 00:00:00 ESTRADIOL [facility] 2018-07-24 00:00:00 null [facility] [address] 2018-07-24 00:00:00 null [facility] [address] 2018-07-24 00:00:00 ESCITALOPRAM OXALATE [facility] [address] 2018-07-24 00:00:00 ESCITALOPRAM OXALATE [facility] [address] 2018-07-24 00:00:00 null [facility] 2018-07-24 00:00:00 null [facility] 2018-07-24 00:00:00 ESCITALOPRAM OXALATE [facility] 2018-07-24 00:00:00 ESCITALOPRAM OXALATE [facility] 2018-09-16 00:00:00 null [facility] [address] 2018-09-16 00:00:00 null [facility] [address] 2018-09-16 00:00:00 PREDNISONE [facility] [address] 2018-09-16 00:00:00 null [facility] [address] 2018-09-16 00:00:00 null [facility] [address] 2018-09-16 00:00:00 PREDNISONE [facility] [address] 2018-09-16 00:00:00 null [facility] 2018-09-16 00:00:00 null [facility] 2018-09-16 00:00:00 PREDNISONE [facility] 2018-09-16 00:00:00 null [facility] 2018-09-16 00:00:00 null [facility] 2018-09-16 00:00:00 PREDNISONE [facility] 2018-10-16 00:00:00 null [facility] [address] 2018-10-16 00:00:00 null [facility] [address] 2018-10-16 00:00:00 null [facility] [address] 2018-10-16 00:00:00 null [facility] [address] 2018-10-16 00:00:00 null [facility] [address] 2018-10-16 00:00:00 null [facility] [address] 2018-10-16 00:00:00 MONTELUKAST SODIUM [facility] [address] 2018-10-16 00:00:00 DICYCLOMINE HCL [facility] [address] 2018-10-16 00:00:00 RANITIDINE HCL [facility] [address] 2018-10-16 00:00:00 RANITIDINE HCL [facility] [address] 2018-10-16 00:00:00 MONTELUKAST SODIUM [facility] [address] 2018-10-16 00:00:00 DICYCLOMINE HCL [facility] [address] 2018-10-16 00:00:00 null [facility] 2018-10-16 00:00:00 null [facility] 2018-10-16 00:00:00 null [facility] 2018-10-16 00:00:00 null [facility] 2018-10-16 00:00:00 null [facility] 2018-10-16 00:00:00 null [facility] 2018-10-16 00:00:00 null [facility] 2018-10-16 00:00:00 null [facility] 2018-10-16 00:00:00 MONTELUKAST SODIUM [facility] 2018-10-16 00:00:00 DICYCLOMINE HCL [facility] 2018-10-16 00:00:00 RANITIDINE HCL [facility] 2018-10-16 00:00:00 TRIAMCINOLONE ACETONIDE [facility] 2018-10-16 00:00:00 [facility]OLONE [facility] 2018-10-16 00:00:00 RANITIDINE HCL [facility] 2018-10-16 00:00:00 MONTELUKAST SODIUM [facility] 2018-10-16 00:00:00 DICYCLOMINE HCL [facility] 2018-11-17 00:00:00 null [facility] [address] 2018-11-17 00:00:00 null [facility] [address] 2018-11-17 00:00:00 null [facility] [address] 2018-11-17 00:00:00 null [facility] [address] 2018-11-17 00:00:00 null [facility] [address] 2018-11-17 00:00:00 null [facility] [address] 2018-11-17 00:00:00 DULOXETINE HCL [facility] [address] 2018-11-17 00:00:00 [facility]INOLONE [facility] [address] 2018-11-17 00:00:00 CYCLOBENZAPRINE HCL [facility] [address] 2018-11-17 00:00:00 TRIAMCINOLONE [facility]ONIDE [facility] [address] 2018-11-17 00:00:00 DULOXETINE HCL [facility] [address] 2018-11-17 00:00:00 CYCLOBENZAPRINE [facility]CL [facility] [address] 2018-11-17 00:00:00 null [facility] 2018-11-17 00:00:00 null [facility] 2018-11-17 00:00:00 null [facility] 2018-11-17 00:00:00 null [facility] 2018-11-17 00:00:00 null [facility] 2018-11-17 00:00:00 null [facility] 2018-11-17 00:00:00 DULOXETINE HCL [facility] 2018-11-17 00:00:00 [facility]AMCINOLONE [facility]IDE [facility] 2018-11-17 00:00:00 CYCLOBENZAPRINE HCL [facility] 2018-11-17 00:00:00 TRIAMCINOLONE ACETONIDE [facility] 2018-11-17 00:00:00 DULOXETINE HCL [facility] 2018-11-17 00:00:00 CY[facility]OBENZAPRINE [facility] 2019-01-28 00:00:00 null [facility] 2019-01-28 00:00:00 null [facility] 2019-01-28 00:00:00 ALBUTEROL SULFATE [facility] 2019-01-28 00:00:00 ALBUTEROL SULFATE [facility] 2019-02-02 00:00:00 null [facility] 2019-02-02 00:00:00 null [facility] 2019-02-02 00:00:00 DICLOFENAC SODIUM [facility] 2019-02-02 00:00:00 DICLOFENAC SODIUM [facility] 2019-02-23 00:00:00 null [facility] 2019-02-23 00:00:00 null [facility] 2019-02-23 00:00:00 DOXYCYCLINE HYCLATE [facility] 2019-02-23 00:00:00 DOXYCYCLINE HYCLATE [facility] 2019-02-24 00:00:00 null [facility] 2019-02-24 00:00:00 null [facility] 2019-02-24 00:00:00 null [facility] 2019-02-24 00:00:00 null [facility] 2019-02-24 00:00:00 AZITHROMYCIN [facility] 2019-02-24 00:00:00 ONDANSETRON [facility] 2019-02-24 00:00:00 ONDANSETRON [facility] 2019-02-24 00:00:00 AZITHROMYCIN [facility] 2019-04-16 00:00:00 null [facility] 2019-04-16 00:00:00 null [facility] 2019-04-16 00:00:00 [facility]LES[facility]-04-16 00:00:00 null [facility] 2019-04-16 00:00:00 null [facility] 2019-04-16 00:00:00 MEASLES, MUMPS & RUBELLA [facility] [facility] 2019-05-27 00:00:00 null [facility] 2019-05-27 00:00:00 null [facility] 2019-05-27 00:00:00 DULOXETINE HCL [facility] 2019-05-27 00:00:00 DULOXETINE HCL [facility] 2019-07-19 00:00:00 null [facility] 2019-07-19 00:00:00 null [facility] 2019-07-19 00:00:00 AMOXICILLIN-POT CLAVULANATE [facility] 2019-07-19 00:00:00 AMOXICILLIN-POT CLAVULANATE [facility] 2019-07-21 00:00:00 null [facility] 2019-07-21 00:00:00 null [facility] 2019-10-21 00:00:00 null [facility] 2019-10-21 00:00:00 null [facility] 2019-10-21 00:00:00 null [facility] 2019-10-21 00:00:00 null [facility] 2019-10-21 00:00:00 null [facility] 2019-10-21 00:00:00 null [facility] 2019-10-21 00:00:00 HYDROXYZINE PAMOATE [facility] 2019-10-21 00:00:00 ESCITALOPRAM OXALATE [facility] 2019-10-21 00:00:00 GABAPENTIN [facility] 2019-10-21 00:00:00 GABAPENTIN [facility] 2019-10-21 00:00:00 ESCITALOPRAM OXALATE [facility] 2019-10-21 00:00:00 HYDROXYZINE PAMOATE [facility] 2019-12-03 00:00:00 null [facility] 2019-12-03 00:00:00 null [facility] 2019-12-03 00:00:00 DULOXETINE HCL [facility] 2019-12-03 00:00:00 DULOXETINE HCL [facility] 2019-12-03 00:00:00 DULOXETINE HCL [facility] 2019-12-22 00:00:00 null [facility] 2019-12-22 00:00:00 null [facility] 2019-12-22 00:00:00 null [facility] 2019-12-22 00:00:00 null [facility] 2019-12-22 00:00:00 null [facility] 2019-12-22 00:00:00 null [facility] 2019-12-22 00:00:00 null [facility] 2019-12-22 00:00:00 ACETAMINOPHEN-CODEINE [facility] 2019-12-22 00:00:00 NITROFURANTOIN MONOHYD MACRO [facility] 2019-12-22 00:00:00 RIFAXIMIN [facility] 2019-12-22 00:00:00 NITROFURANTOIN MONOHYD MACRO [facility] 2019-12-22 00:00:00 RIFAXIMIN [facility] 2019-12-22 00:00:00 ACETAMINOPHEN-CODEINE [facility] [facility] 2020-02-19 00:00:00 null [facility] 2020-02-19 00:00:00 null [facility] 2020-02-19 00:00:00 CLOBETASOL PROPIONATE [facility] 2020-02-19 00:00:00 CLOBETASOL PROPIONATE [facility] 2020-03-28 00:00:00 null [facility] 2020-03-28 00:00:00 null [facility] 2020-03-28 00:00:00 CICLESONIDE [facility] 2020-03-28 00:00:00 CICLESONIDE [facility] 2020-05-12 00:00:00 null [facility] 2020-05-12 00:00:00 null [facility] 2020-05-12 00:00:00 null [facility] 2020-05-12 00:00:00 null [facility] 2020-05-12 00:00:00 MOMETASONE FUROATE [facility] 2020-05-12 00:00:00 OMEPRAZOLE [facility] 2020-05-12 00:00:00 MOMETASONE FUROATE [facility] 2020-05-12 00:00:00 OMEPRAZOLE [facility] 2020-07-27 00:00:00 null [facility] 2020-07-27 00:00:00 null [facility] 2020-07-27 00:00:00 FAMOTIDINE [facility] 2020-07-27 00:00:00 FAMOTIDINE [facility] 2020-08-23 00:00:00 null [facility] 2020-08-23 00:00:00 null [facility] 2020-08-23 00:00:00 DULOXETINE HCL [facility] 2020-08-23 00:00:00 DULOXETINE HCL [facility] 2020-10-17 00:00:00 null [facility] 2020-10-17 00:00:00 null [facility] 2020-10-17 00:00:00 ESTRADIOL [facility] 2020-10-17 00:00:00 ESTRADIOL [facility] Procedures date description facility 2014-04-19 00:00:00 CMP [facility] [address] date description facility 2014-04-19 00:00:00 T4, Free [facility] [address] [address] date description facility 2014-04-19 00:00:00 TSH [facility] [address] date description facility 2014-04-19 00:00:00 CBCDP [facility] [address] [address] date description facility 2014-04-19 00:00:00 [facility] [address] [address] date description facility 2014-04-19 00:00:00 CMP [facility] date description facility 2014-04-19 00:00:00 T4, Free [facility] date description facility 2014-04-19 00:00:00 TSH [facility] date description facility 2014-04-19 00:00:00 CBCDP [facility] date description facility 2014-04-19 00:00:00 [facility] date description facility 2014-09-03 00:00:00 Fluvirin [facility] [address] date description facility 2014-09-03 00:00:00 [facility] [address] date description facility 2014-09-03 00:00:00 Fluvirin [facility] date description facility 2014-09-03 00:00:00 [facility] date description facility 2015-07-12 00:00:00 Destruction, Flat Warts, [facility] [place] [facility] date description facility 2015-07-12 00:00:00 CMP [facility] [address] [address] date description facility 2015-07-12 00:00:00 [facility] [address] [address] date description facility 2015-07-12 00:00:00 Destruction, Flat Warts, [facility], [facility] up to 14 date description facility 2015-07-12 00:00:00 CMP [facility] date description facility 2015-07-12 00:00:00 [facility] date description facility 2015-09-26 00:00:00 MRI, BRAIN W/ AND W/O CONTRAST [facility] [address] [address] date description facility 2015-09-26 00:00:00 CMP [facility] [address] [address] date description facility 2015-09-26 00:00:00 B-12 [facility] [address] date description facility 2015-09-26 00:00:00 TSH [facility] [address] date description facility 2015-09-26 00:00:00 CBCDP [facility] [address] date description facility 2015-09-26 00:00:00 Sed Rate Non-Auto [facility] [address] date description facility 2015-09-26 00:00:00 Fluzone Intradermal [facility] [address] [address] date description facility 2015-09-26 00:00:00 [facility] [address] date description facility 2015-09-26 00:00:00 MRI, BRAIN W/ AND W/O CONTRAST [facility] date description facility 2015-09-26 00:00:00 CMP [facility] date description facility 2015-09-26 00:00:00 B-12 [facility] date description facility 2015-09-26 00:00:00 TSH [facility] date description facility 2015-09-26 00:00:00 CBCDP [facility] date description facility 2015-09-26 00:00:00 Sed Rate Non-Auto [facility] date description facility 2015-09-26 00:00:00 Fluzone Intradermal [facility] date description facility 2015-09-26 00:00:00 [facility] date description facility 2015-10-13 00:00:00 EKG Office Complete [facility] [address] [address] date description facility 2015-10-13 00:00:00 [facility] [address] [address] date description facility 2015-10-13 00:00:00 EKG Office Complete [facility] date description facility 2015-10-13 00:00:00 [facility] date description facility 2016-03-07 00:00:00 Biopsy, Punch Skin SQ Tissue , [facility] single lesion [address] date description facility 2016-03-07 00:00:00 [facility] [address] date description facility 2016-03-07 00:00:00 Biopsy, Punch Skin SQ Tissue , [facility] date description facility 2016-03-07 00:00:00 [facility] date description facility 2016-06-20 00:00:00 Massage Therapy [facility] [address] date description facility 2016-06-20 00:00:00 [facility] [address] date description facility 2016-06-20 00:00:00 Massage Therapy [facility] date description facility 2016-06-20 00:00:00 [facility] date description facility 2016-08-13 00:00:00 Stool Culture [facility] [address] date description facility 2016-08-13 00:00:00 Stool for O&P [facility] [address] date description facility 2016-08-13 00:00:00 WBC Stool [facility] [address] date description facility 2016-08-13 00:00:00 C Diff Toxins by EIA [facility] [address] date description facility 2016-08-13 00:00:00 Giardia Lamblia by EIA [facility] [address] date description facility 2016-08-13 00:00:00 H Pylori Stool [facility] [address] date description facility 2016-08-13 00:00:00 [facility] [address] date description facility 2016-08-13 00:00:00 Stool Culture [facility] date description facility 2016-08-13 00:00:00 Stool for O&P [facility] date description facility 2016-08-13 00:00:00 WBC Stool [facility] date description facility 2016-08-13 00:00:00 C Diff Toxins by EIA [facility] date description facility 2016-08-13 00:00:00 [facility] [facility] description facility 2016-08-13 00:00:00 H Pylori Stool [facility] date description facility 2016-08-13 00:00:00 [facility] date description facility 2016-08-31 00:00:00 Culture, routine - No blood, [facility] urine, stool [address] [address] date description facility 2016-08-31 00:00:00 [facility] [address] [address] date description facility 2016-08-31 00:00:00 Culture, routine - No blood, [facility] urine, stool [facility] date description facility 2016-08-31 00:00:00 [facility] date description facility 2017-03-12 00:00:00 CHEST 2 VIEW [facility] [address] date description facility 2017-03-12 00:00:00 [facility] [address] date description facility 2017-03-12 00:00:00 CHEST 2 VIEW [facility] date description facility 2017-03-12 00:00:00 [facility] date description facility 2017-08-16 00:00:00 US PELVIC/TRANSVAGINAL [facility] [address] date description facility 2017-08-16 00:00:00 TSH w/Reflex to Free T4, if [facility] [address] date description facility 2017-08-16 00:00:00 Inj, Medicare Flu Shot [facility] [address] date description facility 2017-08-16 00:00:00 BMP [facility] [address] date description facility 2017-08-16 00:00:00 Prolactin [facility] [address] date description facility 2017-08-16 00:00:00 CBC W/Diff/Plt [facility] [address] date description facility 2017-08-16 00:00:00 Fluarix Quadrivalent [facility] Intramuscular Suspension 0.5 ML Laisha morrissey date description facility 2017-08-16 00:00:00 [facility] [address] date description facility 2017-08-16 00:00:00 US PELVIC/TRANSVAGINAL [facility] date description facility 2017-08-16 00:00:00 TSH w/Reflex to Free T4, if [facility] date description facility 2017-08-16 00:00:00 Inj, Medicare Flu Shot [facility] date description facility 2017-08-16 00:00:00 BMP [facility] date description facility 2017-08-16 00:00:00 Prolactin [facility] date description facility 2017-08-16 00:00:00 CBC W/Diff/Plt [facility] date description facility 2017-08-16 00:00:00 Fluarix Quadrivalent [facility] Intramuscular Suspension 0.5 ML [facility] [facility] date description facility 2017-08-16 00:00:00 [facility] date description facility 2018-09-16 00:00:00 First Vx - Ix admin via ID IM [facility] or jet injects without [address] [address] counseling by physician date description facility 2018-09-16 00:00:00 Fluarix Quadrivalent [facility] Intramuscular Suspension 0.[address] [address] ghanshyam date description facility 2018-09-16 [facility] [address] [address] date description facility 2018-09-16 00:00:00 First Vx - Ix admin via ID IM [facility] or jet injects without [facility] [facility] counseling by physician date description facility 2018-09-16 00:00:00 Fluarix Quadrivalent [facility] Intramuscular Suspension 0.5 ML [facility] [facility] date description facility 2018-09-16 00:00:00 [facility] date description facility 2018-11-17 00:00:00 Pelvic Floor Dysfunction [facility] date description facility 2018-11-17 00:00:00 [facility] date description facility 2019-01-20 00:00:00 MMR Immune Status Panel [facility] [address] [address] date description facility 2019-01-20 00:00:00 MMR [facility] [address] date description facility 2019-01-20 00:00:00 [facility] [address] date description facility 2019-01-20 00:00:00 MMR Immune Status Panel [facility] date description facility 2019-01-20 00:00:00 MMR [facility] date description facility 2019-01-20 00:00:00 [facility] date description facility 2019-02-02 00:00:00 KNEE 1 [facility] 2 [facility] [facility] date description facility 2019-02-02 [facility] [facility] date description facility 2019-02-05 00:00:00 MRI KNEE WO - LT [facility] [facility] date description facility 2019-02-05 00:00:00 [facility] [facility] date description facility 2019-06-19 00:00:00 TSH WITH REFLEX TO FT4 [facility] [facility] date description facility 2019-06-19 00:00:00 COMPREHENSIVE METABOLIC PANEL [facility] [facility] date description facility 2019-06-19 00:00:00 LIPID SCREEN, FASTING [facility] [facility] date description facility 2019-06-19 00:00:00 CBC W/Diff/Plt [facility] [facility] date description facility 2019-06-19 00:00:00 [facility] [facility] date description facility 2019-07-21 00:00:00 First Vx - Ix admin via ID IM [facility] or jet injects without [facility] [facility] counseling by physician date description facility 2019-07-21 00:00:00 Boostrix Intramuscular [facility] Suspension 5-2.5-18.5 [facility] [facility] date description facility 2019-07-21 00:00:00 [facility] [facility] date description facility 2019-12-03 00:00:00 TSH WITH REFLEX TO FT4 [facility] [facility] date description facility 2019-12-03 00:00:00 COMPREHENSIVE METABOLIC PANEL [facility] [facility] date description facility 2019-12-03 00:00:00 LIPID SCREEN, FASTING [facility] [facility] date description facility 2019-12-03 00:00:00 VITAMIN B 12 [facility] [facility] date description facility 2019-12-03 00:00:00 Estradiol [facility] [facility] date description facility 2019-12-03 00:00:00 FSH [facility] date description facility 2019-12-03 00:00:00 LH [facility] date description facility 2019-12-03 00:00:00 CBC W/Diff/Plt [facility] date description facility 2019-12-03 00:00:00 [facility] date description facility 2020-02-09 00:00:00 BIOPSY OF THE VULVA, ONE [facility] date description facility 2020-02-09 00:00:00 VULVAR BIOPSY [facility] date description facility 2020-02-09 00:00:00 THIN PREP PAP with HPV 30+YRS [facility] OLD [facility] [facility] date description facility 2020-02-09 00:00:00 [facility] date description facility 2020-02-23 00:00:00 D-DIMER [facility] date description facility 2020-02-23 00:00:00 [facility] Results Social History date description facility 2013-10-23 00:00:00 Never smoker [facility] [address] date description facility 2013-12-14 00:00:00 Never smoker [facility] [address] date description facility 2014-01-12 00:00:00 Never smoker [facility] [address] date description facility 2014-01-19 00:00:00 Never smoker [facility] [address] date description facility 2014-03-22 00:00:00 Never smoker [facility] date description facility 2014-07-08 00:00:00 Never smoker [facility] date description facility 2014-08-06 00:00:00 Never smoker [facility] date description facility 2014-09-03 00:00:00 Never smoker [facility] date description facility 2014-12-01 00:00:00 Never smoker [facility] date description facility 2015-07-12 00:00:00 Never smoker [facility] date description facility 2015-09-26 00:00:00 Never smoker [facility] [address] date description facility 2015-10-13 00:00:00 Never smoker [facility] date description facility 2016-03-07 00:00:00 Never smoker [facility] [address] date description facility 2016-03-29 00:00:00 Never smoker [facility] [address] date description facility 2016-05-24 00:00:00 Never smoker [facility] [address] date description facility 2016-08-13 00:00:00 Never smoker [facility] [address] date description facility 2017-01-02 00:00:00 Never smoker [facility] [address] date description facility 2017-01-30 00:00:00 Never smoker [facility] date description facility 2017-06-24 00:00:00 Never smoker [facility] [address] date description facility 2018-01-13 00:00:00 Never smoker [facility] date description facility 2018-02-11 00:00:00 Never smoker [facility] [address] date description facility 2018-09-16 00:00:00 Never smoker [facility] [address] date description facility 2018-11-04 00:00:00 Never smoker [facility] date description facility 2019-02-02 00:00:00 Never smoker [facility] date description facility 2019-02-23 00:00:00 Never smoker [facility] date description facility 2019-07-21 00:00:00 Never smoker [facility] date description facility 2019-12-03 00:00:00 Never smoker [facility] date description facility 2019-12-22 00:00:00 Never smoker [facility] date description facility 2020-02-09 00:00:00 Never smoker [facility] date description facility 2020-02-23 00:00:00 Never smoker [facility] date description facility 2020-09-28 00:00:00 Never smoker [facility] date description facility 2020-10-13 00:00:00 Never smoker [facility] Social History date description facility 2013-10-23 00:00:00 Never smoker [facility] [address] date description facility 2013-12-14 00:00:00 Never smoker [facility] [address] date description facility 2014-01-12 00:00:00 Never smoker [facility] [address] date description facility 2014-01-19 00:00:00 Never smoker [facility] [address] date description facility 2014-03-22 00:00:00 Never smoker [facility] date description facility 2014-07-08 00:00:00 Never smoker [facility] date description facility 2014-08-06 00:00:00 Never smoker [facility] date description facility 2014-09-03 00:00:00 Never smoker [facility] date description facility 2014-12-01 00:00:00 Never smoker [facility] date description facility 2015-07-12 00:00:00 Never smoker [facility] date description facility 2015-09-26 00:00:00 Never smoker [facility] [address] date description facility 2015-10-13 00:00:00 Never smoker [facility] date description facility 2016-03-07 00:00:00 Never smoker [facility] [address] date description facility 2016-03-29 00:00:00 Never smoker [facility] [address] date description facility 2016-05-24 00:00:00 Never smoker [facility] [address] date description facility 2016-08-13 00:00:00 Never smoker [facility] [address] date description facility 2017-01-02 00:00:00 Never smoker [facility] [address] date description facility 2017-01-30 00:00:00 Never smoker [facility] date description facility 2017-06-24 00:00:00 Never smoker [facility] [address] date description facility 2018-01-13 00:00:00 Never smoker [facility] date description facility 2018-02-11 00:00:00 Never smoker [facility] [address] date description facility 2018-09-16 00:00:00 Never smoker [facility] [address] date description facility 2018-11-04 00:00:00 Never smoker [facility] date description facility 2019-02-02 00:00:00 Never smoker [facility] date description facility 2019-02-23 00:00:00 Never smoker [facility] date description facility 2019-07-21 00:00:00 Never smoker [facility] date description facility 2019-12-03 00:00:00 Never smoker [facility] date description facility 2019-12-22 00:00:00 Never smoker [facility] date description facility 2020-02-09 00:00:00 Never smoker [facility] date description facility 2020-02-23 00:00:00 Never smoker [facility] date description facility 2020-09-28 00:00:00 Never smoker [facility] date description facility 2020-10-13 00:00:00 Never smoker [facility] date description facility [id number]
[2020-11-23 11:37] LABS: ANA SCREEN NEGATIVE (NEGATIVE)
== END 2020-11-21 23:59 | disposition home or self-care (01) ==
LOC: LAB.WCP 08:00
PROVIDERS: ATTEND Physician Assistant Medical
DX: R61 Generalized hyperhidrosis (principal)
CPT/HCPCS: 36415; 81599; 84443; 85025; 85651; 86038; 86140; 86812

== ENCOUNTER 2020-12-01 17:26 | Outpatient (CLI) | payer OTHER ==
--- NOTE | 2020-12-01 18:15 | XRAY Report ---
PROCEDURE: Pelvis 3 View INDICATIONS: PELVIC PAIN TECHNIQUE: 3 view(s) of the pelvis acquired. COMPARISON: None. FINDINGS: Bones: No fractures or dislocations. Mild bilateral hip joint osteophytic changes are seen with supe rior joint space narrowing and subchondral sclerosis. No evidence of avascular necrosis of femoral he ad. Very mild osteoarthritic changes in bilateral sacroiliac joints are also noted. No ankylosis or b lizabeth erosion is seen. No suspicious bony lesions. Soft tissues: Visualized bowel gas pattern is normal. No suspicious soft tissue calcifications. IMPRESSION: Mild osteoarthritic changes in bony pelvis as above. No fracture or dislocation. No ankyl osis or erosion is seen in bilateral sacroiliac joints. No evidence of avascular necrosis of femoral head. Reviewed by: Juan Alberto Bolanos MD on 12/01/2020 6:13 PM PST Approved by: Juan Alberto Bolanos MD on 12/01/2020 6:13 PM PST Station ID: [id number]
== END 2020-12-01 17:27 | disposition home or self-care (01) ==
LOC: DI 17:26
PROVIDERS: ATTEND Physician Assistant Medical
DX: M19.09 Primary osteoarthritis, other specified site (principal); R10.2 Pelvic and perineal pain; M54.5 Low back pain; R79.89 Other specified abnormal findings of blood chemistry

== ENCOUNTER 2022-12-01 18:58 | Emergency (ER) | payer OTHER ==
--- NOTE | 2022-12-01 20:29 | ED Physician Documentation ---
PD HPI FOCAL NEURO - Stated complaint Stated Complaint: NUMBNESS BOTH HANDS - Chief complaint Chief Complaint: Neuro - History obtained from History obtained from: Patient, Family - History of Present Illness Timing - onset: Enter time (1500), Today Timing - duration: Hours Timing - details: Gradual onset, Still present Severity of deficit: Mild Weakness: No: Face, Arm, Hand, Leg, Foot, Right, Left Numbness: Face, Arm, Hand, Leg, Right (hand 4th and 5th fingers), Left (facial, leg and hand) Associated symptoms: Other ('twitching"). No: Headache, Nausea / vomiting, Seizure, Syncope, Fall, Head injury, Chest pain, Neck pain, Back pain, Fever Contributing factors: positive: Other (hx of wenkibok after ablation for SVT. Is on duloxitine and took THC) Baseline status: positive: A&OX3, ambulatory, indep Similar symptoms before: Diagnosis (interaction with duloxitine and THC) Recently seen: Not recently seen - Additional information Additional information: Beryl Myers is a 42-year-old female with a history of irritable bowel SVT s/p ablation with Wenkibok and a history of depression. She is on duloxetine and she has taken today 5 mg THC mint. She has had a similar reaction to this previously. Today she is describing that she has some sensation of numbness to the left side of her face and the left side of her leg as well as to both hands along the fourth and fifth digits. She has developed some twitching along with this. This is similar to what she is had happened to her previously about a year and a half ago. At that time she did not think care and today she is feeling that her symptoms are improving and she would like to go home Review of Systems Constitutional: denies: Fever, Myalgias Eyes: denies: Decreased vision Ears: denies: Ear pain Nose: denies: Rhinorrhea / runny nose, Congestion Throat: denies: Sore throat Cardiac: denies: Chest pain / pressure, Palpitations, Pedal edema, Calf pain Respiratory: denies: Dyspnea, Cough, Wheezing GI: reports: Abdominal Pain (for the past 3 wks similar to prior episodes with IBS), Diarrhea : denies: Dysuria, Frequency Skin: denies: Rash, Lesions Musculoskeletal: denies: Neck pain, Extremity pain Neurologic: reports: Numbness. denies: Generalized weakness, Focal weakness, Difficulty speaking, Syncope, Seizure, Confused, Altered mental status, Headache, Head injury, LOC PD PAST MEDICAL HISTORY - Past Medical History Cardiovascular: Other Respiratory: Asthma GI: Other HEENT: Other - Past Surgical History Past Surgical History: Yes General: Colonoscopy - Present Medications Home Medications: Ambulatory Orders Medication Instructions Recorded Confirmed Fluticasone Furoate [Veramyst] 10 gm NS DAILY 08/31/13 12/11/18 Levocetirizine Dihydrochloride 5 mg PO DAILY 10/15/15 12/11/18 [Xyzal] raNITIdine [Zantac] 150 mg PO BID 09/26/16 12/11/18 Albuterol Sulf [Ventolin Hfa 2 inh INH Q4HR PRN 12/11/18 12/11/18 Inhaler] Cholecalciferol (Vitamin D3) 2,000 units PO DAILY 12/11/18 12/11/18 [Vitamin D3] Cyclobenzaprine HCl 10 mg PO ONCE PRN 12/11/18 12/11/18 DULoxetine [Cymbalta] 30 - 60 mg PO DAILY 12/11/18 12/11/18 Dicyclomine HCl 10 mg PO BID PRN 12/11/18 12/11/18 EPINEPHrine [Epipen 2-Edgar] 0.3 mg INJ ONCE PRN 12/11/18 12/11/18 Estradiol [Estrace] 0.5 applic VG DAILY PRN 12/11/18 12/11/18 Fluticasone/Salmeterol [Advair 1 inh IH BID 12/11/18 12/11/18 250-50 Diskus] Lactobacillus Acidophilus 1 each PO BID 12/11/18 12/11/18 [Probiotic Acidophilus] Loperamide [Imodium] 1 - 2 cap PO TID PRN 12/11/18 12/11/18 Modafinil [Provigil] 50 mg PO DAILY PRN 12/11/18 12/11/18 Montelukast Sodium 10 mg PO DAILY PM 12/11/18 12/11/18 Multivit with Calcium,Iron,Min 1 tab-cap PO DAILY 12/11/18 12/11/18 [Multiple Vitamins For Women] Triamcinolone Acetonide 15 gm TP BID PRN 12/11/18 12/11/18 diphenhydrAMINE HCL [Allergy 1 - 2 tab PO RTQ6H PRN 12/11/18 12/11/18 Medication] - Allergies Allergies/Adverse Reactions: Allergies Allergy/AdvReac Type Severity Reaction Status Date / Time acetaminophen [From NyQuil] Allergy Rash Verified 12/01/22 19:32 amoxicillin Allergy Nausea and Verified 12/01/22 19:32 diarrhea dextromethorphan Allergy Rash Verified 12/01/22 19:32 [From NyQuil] doxylamine [From NyQuil] Allergy Rash Verified 12/01/22 19:32 pseudoephedrine [From NyQuil] Allergy Rash Verified 12/01/22 19:32 Sulfa (Sulfonamide AdvReac Intermediate Unknown Verified 12/01/22 19:32 Antibiotics) cephalexin monohydrate * AdvReac Unknown Unknown Verified 12/01/22 19:32 [From Keflex] prochlorperazine edisylate * AdvReac Paranoia Verified 12/01/22 19:32 [From Compazine] prochlorperazine maleate * AdvReac Paranoia Verified 12/01/22 19:32 [From Compazine] - Social History Does the pt smoke?: No Smoking Status: Never smoker Does the pt drink ETOH?: Yes Does the pt have substance abuse?: No - Immunizations Immunizations are current?: Yes - POLST Patient has POLST: No PD ED PE NORMAL - Vitals Vital signs reviewed: Yes (tachy and hypertensive ) - General General: Alert and oriented X 3, No acute distress, Well developed/nourished, Other (Thin 42 y/o female in no distress happy and wants to go home. 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 ) Eye Opening: Spontaneous Motor: Obeys Commands Verbal: Oriented GCS Score: 15 - Psych Psych: Normal mood, Normal affect NIHSS - Time Time: 20:20 - Level of Consciousness Level of consciousness: (0) Alert, Keenly responsive LOC Questions: (0) Answers both Q's correct LOC Commands: (0) Performs both correctly - Gaze Best Gaze: (0) Normal - Visual Visual: (0) No loss - Facial Palsy Facial Palsy: (0) Normal, symmetrical movement - Motor Arms (both separate) Motor Arm (right): (0) No drift Motor Arm (left): (0) No drift - Motor Legs (both separate) Motor Leg (right): (0) No drift Motor Leg (left): (0) No drift - Limb Ataxia Limb Ataxia: (0) Absent - Sensory Sensory: (1) Kqeb-oj-zezwulie loss - Best Language Best Language: (0) No aphasia - Dysarthria Dysarthria: (0) Normal - Extinction and Inattention (formally neg Extinction and inattention: (0) No abnormality - Total Score/Results Total Score/Result: 1 Results - Vitals Vitals: Vital Signs - 24 hr 12/01/22 12/01/22 12/01/22 19:22 19:31 20:01 Temperature 37.0 C 37.0 C Heart Rate 101 H 101 H 98 Respiratory 16 16 21 Rate Blood Pressure 134/85 H 134/85 H 138/94 H O2 Saturation 99 99 98 12/01/22 20:30 Temperature Heart Rate 85 Respiratory 12 Rate Blood Pressure 144/88 H O2 Saturation 100 Oxygen O2 Source Room air Procedures - IVC sono (time) 2022 Bedside IVC sono: IVC measures (cm) (1.65), IVC collapsed c insp (cm) (1.01), Euvolemia PD Medical Decision Making - ED course Complexity details: reviewed old records, considered differential, d/w patient, d/w family ED course: 42-year-old female reports the use of THC meant interacting with her duloxetine similar to what she is had happened to her in the past. She has had associated symptoms of twitching very likely due to the duloxetine and some numbness to her lateral aspect of her arms and her left leg. She feels that the symptoms are psychosomatic. She feels her symptoms are improving and she feels she does not need further work up. She does have ongoing work up and an appointment with cardiology on the of this month. Her exam is unremarkable. She has no twitching while in the ED and and no demonstrable neuro deficit. She declines more aggressive work up. I will ask the patient to follow up for MRI if she has symptoms that persist. I examined the patient and found no specific deficit. Her history is concerning for the SVT and wenkibok but neither of these is a risk for embolic stroke. She has had echo cardiogram and number of times. She has no "hole" in her heart and no history of Afib. She is in sinus rhythm here. She does not have known vascular disease. I checked her vascular volume with POCUS and found this to be normal. I suspect as the patient does that the symptoms are related to the medication and the THC. Departure - Departure Disposition: 01 Home, Self Care Clinical Impression: Paresthesia Condition: Stable Instructions: ED Paraesthesias Follow-Up: Candice Mays PA-C [Primary Care Provider] - Comments: Beryl, today we suspect that you are having a reaction between your Duloxitine an d THC and we expect symptoms to resolve completely. If you do not have complete resolution of symptoms by tomorrow call your doctor to schedule an MRI. If you develop worsening symptoms or new symptoms return to the ED and we will complete the work up we talked about.
[2022-12-01 20:36] VITALS: BP 144/88
== END 2022-12-01 20:53 | disposition home or self-care (01) ==
LOC: ED 18:58
DX: R20.2 Paresthesia of skin (principal)
CPT/HCPCS: 99282; 99284

== ENCOUNTER 2023-03-28 12:08 | Outpatient (CLI) | payer OTHER ==
--- NOTE | 2023-03-28 13:47 | XRAY Report ---
PROCEDURE: Wrist 3 View RT INDICATIONS: PAIN IN RIGHT WRIST TECHNIQUE: 3 views of the wrist were acquired. COMPARISON: None. FINDINGS: Bones: No fractures or dislocations. No suspicious bony lesions. Scaphoid view: Not applicable. Soft tissues: No suspicious soft tissue calcifications or masses. IMPRESSION: No acute bony abnormality. If there is anatomic snuff box tenderness, consider wrist immobilization a nd repeat radiographs in 10-14 days or cross-sectional imaging now. If pain persists with conservativ e management, consider repeat radiographs in 10-14 days or cross-sectional imaging. Reviewed by: Jose Orellana on 03/28/2023 1:46 PM PDT Approved by: Jose Orellana on 03/28/2023 1:46 PM PDT Station ID: [id number]
== END 2023-03-28 12:09 | disposition home or self-care (01) ==
LOC: DI 12:08
PROVIDERS: ATTEND Physician Assistant Medical
DX: M25.531 Pain in right wrist (principal)

== ENCOUNTER 2023-12-17 15:33 | Outpatient (CLI) | payer OTHER ==
--- NOTE | 2023-12-19 11:48 | Mammography Report ---
BILATERAL DIGITAL SCREENING MAMMOGRAM 3D/2D: 12/17/2023 CLINICAL: Baseline exam. Routine screening. No prior exams were available for comparison. Both breasts are extremely dense, which lowers the sensitivity of mammography (category d />75% gland ular tissue). There is an oval equal density asymmetry with an obscured and circumscribed margin in the right breas t posterior depth medial region seen on the craniocaudal view only. No other significant masses, calcifications, or other findings are seen in either breast. IMPRESSION: INCOMPLETE: NEEDS ADDITIONAL IMAGING EVALUATION The oval equal density asymmetry in the right breast most likely is a cyst or clustered cysts and is indeterminate. Additional views with possible ultrasound are recommended. Based on Tyrer-Cuzick model (a risk assessment model), the patient's lifetime risk is 21.0% and her 1 0 year risk is 4.0%. If a patient has an elevated risk, a more comprehensive evaluation should be con sidered and/or a referral to a genetic counselor. The [place], [employer], and NCCN Guidelines advise the consideration of Breast MRI as an adjunct to screening mammog awa in patients whose "Lifetime risk to develop breast cancer" is 20% or higher. This exam was interpreted at Station ID: [id number]. NOTE: For mammograms, a report in lay terms will be sent to the patient. Approximately 15% of breast malignancies will not be visualized mammographically. In the management of a palpable breast mass, a negative mammogram must not discourage biopsy of a clinically suspicious lesion. Electronically Signed By: Meredith fermin/mel:12/18/2023 10:48:53 ACR BI-RADS Category 0: Incomplete 3340F PARENCHYMAL PATTERN: (VD) - The breast(s) demonstrate(s) extremely dense parenchyma, limiting the sen sitivity of mammography. BI-RADS CATEGORY: (0) - 0 Mammo and [place] [id number] Immediate follow-up LATERALITY: (B)
== END 2023-12-17 15:34 | disposition home or self-care (01) ==
LOC: DI.N 15:33
DX: Z12.31 Encounter for screening mammogram for malignant neoplasm of breast (principal); R92.343 Mammographic extreme density, bilateral breasts; R92.8 Other abnormal and inconclusive findings on diagnostic imaging of breast

== ENCOUNTER 2024-01-15 09:52 | Outpatient (CLI) | payer OTHER ==
--- NOTE | 2024-01-16 09:02 | Mammography Report ---
UNILATERAL RIGHT DIGITAL DIAGNOSTIC MAMMOGRAM 3D/2D WITH LATEROMEDIAL SPOT COMPRESSION: 01/15/2024 CLINICAL: Patient returns today to evaluate an asymmetry in the right breast. Comparison is made to exam dated: 12/17/2023 mammogram - [facility]. The right breast is extremely dense, which lowers the sensitivity of mammography (category d />75% gl andular tissue). There is an oval asymmetry with an obscured and circumscribed margin in the right breast middle depth medial region seen on the craniocaudal view only. This is seen in additional views. No other significant masses or calcifications are seen in the breast. IMPRESSION: INCOMPLETE: NEEDS ADDITIONAL IMAGING EVALUATION The oval asymmetry in the right breast is indeterminate. A targeted ultrasound is recommended and will immediately follow. Based on Tyrer-Cuzick model (a risk assessment model), the patient's lifetime risk is 21.0% and her 1 0 year risk is 4.0%. If a patient has an elevated risk, a more comprehensive evaluation should be con sidered and/or a referral to a genetic counselor. The [employer] [employer], [employer], and NCCN Guidelines advise the consideration of Breast MRI as an adjunct to screening mammog awa in patients whose "Lifetime risk to develop breast cancer" is 20% or higher. This exam was interpreted at Station ID: [id number]. NOTE: For mammograms, a report in lay terms will be sent to the patient. Approximately 15% of breast malignancies will not be visualized mammographically. In the management of a palpable breast mass, a negative mammogram must not discourage biopsy of a clinically suspicious lesion. Electronically Signed By: Luis M Murillo M.D. slc/:01/15/2024 10:49:51 ACR BI-RADS Category 0: Incomplete 3340F PARENCHYMAL PATTERN: (VD) - The breast(s) demonstrate(s) extremely dense parenchyma, limiting the sen sitivity of mammography. BI-RADS CATEGORY: (0) - 0 Ultrasound [id number] Immediate follow-up LATERALITY: (B)
--- NOTE | 2024-01-16 09:02 | Ultrasound Report ---
LIMITED ULTRASOUND OF RIGHT BREAST: 01/15/2024 CLINICAL: Patient returns today to evaluate a focal asymmetry in the right breast. Comparison is made to exams dated: 01/15/2024 mammogram and 12/17/2023 mammogram - [facility]. Color flow and real-time ultrasound of the right breast 4 o'clock region were performed. Sin scale images of the real-time examination were reviewed. There is a benign 0.8 cm x 0.8 cm x 0.3 cm oval normal lymph node with a circumscribed margin in the right breast at 4 o'clock posterior depth 6 cm from the nipple. This oval normal lymph node is hypoe choic with fatty hilum. This correlates with mammography findings. Color flow imaging demonstrates that there is vascularity present. IMPRESSION: BENIGN There is no sonographic evidence of malignancy. The lymph node in the right breast is benign. A 1 year screening mammogram is recommended. Exam findings were conveyed to the patient. This exam was interpreted at Station ID: [id number]. Electronically Signed By: Luis M Murillo M.D. slc/:01/15/2024 10:52:14 Ultrasound BI-RADS: 2 Benign BI-RADS CATEGORY: (2) - 2 Mammogram [id number] 1 year screening LATERALITY: (B)
== END 2024-01-15 09:53 | disposition home or self-care (01) ==
LOC: DI 09:52
PROVIDERS: ATTEND Physician Assistant Medical
DX: R92.8 Other abnormal and inconclusive findings on diagnostic imaging of breast (principal); R92.341 Mammographic extreme density, right breast